=== PATIENT | female | born 1940 | race Caucasian/White ===

== ENCOUNTER 2021-05-24 14:12 | Outpatient (REF) | payer MEDICARE, SELFPAY ==
--- NOTE | ~2021-05-24 | XR_ITS ---
EXAMINATION: XR CHEST CLINICAL INFORMATION: Asthma. COMPARISON: None TECHNIQUE: 2 views of the chest were obtained. FINDINGS: The lungs are well-expanded and clear. There is mild cardiomegaly. The aorta is ectatic. No gross bony abnormality is seen. XR/XR chest 2V IMPRESSION: Mild cardiomegaly without acute process.
[2021-05-24 15:26] LABS: MANUAL DIFF FLAG NO
[2021-05-24 15:30] LABS: Basophils Absolute Auto 0.1 X10*3/uL (0.0-0.2); Basophils Percent Auto 0.4 % (0-2); Eosinophils Absolute Auto 0.2 X10*3/uL (0.0-0.4); Eosinophils Percent Auto 1.2 % (0-4); Hematocrit 41.7 % (37-47); Hemoglobin 13.1 g/dl (12.0-16.0); Imm Gran Abs Auto 0.23 X10*3/uL (0.00-0.03); Imm Gran Pct Auto 1.7 % (0.0-0.4); Lymphocytes Absolute Auto 3.3 X10*3/uL (1.2-4.9); Lymphocytes Percent Auto 24.3 % (20-40); Mean Corpuscular HGB Conc 31.4 g/dl (31.0-35.0); Mean Corpuscular Hemoglobin 27.3 pg (27.0-33.0); Mean Corpuscular Volume 87.1 fL (80-98); Mean Platelet Volume 9.5 fL (9.4-12.3); Monocytes Absolute Auto 1.1 X10*3/uL (0.1-1.2); Monocytes Percent Auto 7.9 % (2-11); Neutrophils Absolute Auto 8.7 X10*3/uL (2.0-8.3); Neutrophils Percent Auto 64.5 % (45-73); Platelet Count 383 X10*3/uL (160-400); Red Blood Count 4.79 X10*6/uL (4.20-5.50); Red Cell Distribution Width 15.2 % (11.0-16.0); White Blood Count 13.5 X10*3/uL (4.8-10.8)
[2021-05-24 16:12] LABS: Erythrocyte Sedimentation Rate 63 MM/HR (0-20)
[2021-05-28 18:26] LABS: Immunoglobulin E 1509 kU/L (<OR=114)
== END 2021-05-24 14:13 | disposition home or self-care (01) ==
LOC: HO.XRAY 14:12
PROVIDERS: PCP Internal Medicine; Visit Provider Hospitalist
DX: J45.909 Unspecified asthma, uncomplicated (principal); R05 Cough
CPT/HCPCS: 36415; 71046; 82785; 85025; 85652; 99212

== ENCOUNTER → 2021-07-26 13:42 | Outpatient (BNVA) | payer MEDICARE, MEDICAID, SELFPAY | PROVIDERS: PCP Internal Medicine; Visit Provider Hospitalist | DX: J45.909 Unspecified asthma, uncomplicated (principal); R05 Cough; K44.9 Diaphragmatic hernia without obstruction or gangrene; Z91.09 Other allergy status, other than to drugs and biological substances | CPT/HCPCS: 99212 ==

== ENCOUNTER → 2021-08-31 11:03 | Outpatient (BNVA) | payer MEDICARE, MEDICAID, SELFPAY | PROVIDERS: PCP Internal Medicine; Visit Provider Hospitalist | DX: J45.909 Unspecified asthma, uncomplicated (principal); R05.9 Cough, unspecified; K44.9 Diaphragmatic hernia without obstruction or gangrene; I11.0 Hypertensive heart disease with heart failure; I50.30 Unspecified diastolic (congestive) heart failure; Z91.09 Other allergy status, other than to drugs and biological substances | CPT/HCPCS: 99212 ==

== ENCOUNTER → 2021-12-04 12:43 | Outpatient (BNVA) | payer MEDICARE, MEDICAID, SELFPAY | PROVIDERS: PCP Internal Medicine; Visit Provider Hospitalist | DX: R05.9 Cough, unspecified (principal); J45.909 Unspecified asthma, uncomplicated; I50.30 Unspecified diastolic (congestive) heart failure; K44.9 Diaphragmatic hernia without obstruction or gangrene; Z91.09 Other allergy status, other than to drugs and biological substances; Z79.899 Other long term (current) drug therapy | CPT/HCPCS: 99212 ==

== ENCOUNTER 2022-01-03 09:37 | Outpatient (REF) | payer MEDICARE, OTHER, SELFPAY ==
--- NOTE | ~2022-01-03 | FL_ITS ---
EXAMINATION: FL BARIUM SWALLOW CLINICAL INFORMATION: Gastroesophageal reflux disease without esophagitis. COMPARISON: None TECHNIQUE: Barium swallow examination is performed using fluoroscopic evaluation in addition to multiple fluoroscopic spot views. The patient is imaged both upright and prone and using both thick and thin sulfate along with effervescent granules. Fluoroscopy time: 2.2 minutes DAP: 10.1581 Gycm2 Images: 48 FINDINGS: The esophagus is slightly tortuous. The esophagus is normal though otherwise normal in course and overall distensibility. There is an abnormal transversely oriented fold within the distal esophagus just proximal to the gastroesophageal junction (RF 2-1 image 1). The mucosa is otherwise unremarkable. Primary and secondary processes are unremarkable. For much of the study the gastroesophageal junction is normally located, though there is a sliding hiatus hernia containing a portion of the proximal stomach, which expresses itself while monitoring for reflux at the end of the study. There is spontaneous reflux of a small volume of contrast to the midesophagus without provocation. There is delayed clearing of this contrast. A 13 mm barium tablet passes to the stomach without obstruction. FL/FL barium swallow IMPRESSION: Irregular transversely oriented fold at the distal esophagus just proximal to the gastroesophageal junction of uncertain significance. Could represent a web, an incomplete Shatzki ring, or ulceration. Correlation with endoscopy could be of benefit. Sliding hiatus hernia. Gastroesophageal reflux to the midesophagus with delayed clearing.
== END 2022-01-03 09:38 | disposition home or self-care (01) ==
LOC: HO.XRAY 09:37
PROVIDERS: Visit Provider Hospitalist
DX: K21.9 Gastro-esophageal reflux disease without esophagitis (principal)
CPT/HCPCS: 74220

== ENCOUNTER → 2022-01-24 13:51 | Outpatient (BNVA) | payer MEDICARE, MEDICAID, SELFPAY | PROVIDERS: PCP Internal Medicine; Visit Provider Hospitalist | DX: J45.40 Moderate persistent asthma, uncomplicated (principal); R05.9 Cough, unspecified; I50.30 Unspecified diastolic (congestive) heart failure; K44.9 Diaphragmatic hernia without obstruction or gangrene; Z91.09 Other allergy status, other than to drugs and biological substances | CPT/HCPCS: 99212 ==

== ENCOUNTER 2022-04-19 06:59 | Day surgery (SDC) | payer MEDICARE, OTHER, SELFPAY ==
[2022-04-11 12:46] VITALS: BMI 34.0
--- NOTE | 2022-04-18 12:04 | P.CONAN_ITS ---
Documented by User: Dori Cobos NP 04/18/22 12:10 HPI - Anesthesia Eval Consult details Narrative: 81yo F for Upper Endoscopy Medically cleared Eliquis for DVT/PE PMFSH Active Problems Active Problems: All Active Problems (Updated 04/11/22 @ 12:45 by Megan Jackson, CARMEN) Asthma (Acute) Cough (Acute) Hiatal hernia (Acute) Environmental allergies (Acute) Diastolic HF (heart failure) (Acute) Hypertension (Acute) Asthma-COPD overlap syndrome (Acute) Abnormal barium swallow (Acute) Hiatal hernia (Acute) Past Medical History Medical History History of DVT (deep vein thrombosis) History of pulmonary embolus (PE) History of TIA (transient ischemic attack) Hyperlipidemia Hypothyroidism Obesity Osteoporosis Surgical History Surgical History History of colonoscopy History of esophagogastroduodenoscopy (EGD) Hx of cholecystectomy Hx of varicose vein stripping Social History Social History (Updated 05/24/21 @ 14:26 by ROBBIN Hoyt) Are you a primary career development counselor to a significant other at home: No Do you presently have visiting nurse or other home services: No Patient Tobacco Use Status: Never used Tobacco Use of substances other than those prescribed or required for medical reasons: No Are you DNR?: No Advance Directives: No Advance Directives Information Provided: Yes Advance Directives on File: No Recently lost weight without trying: Yes How much weight loss: 2-13 pounds Nutrition Risks: Surgical patient >75years Meds Allergies Allergy/AdvReac Type Severity Reaction Status Date / Time ibuprofen [IBUPROFEN] Allergy Intermediate HIVES Verified 04/19/22 07:57 Home Medications Medication Instructions Recorded Confirmed Last Taken Type alendronate 70 mg tablet 70 mg PO QWEEK 05/24/21 04/11/22 Unknown History ketotifen fumarate 0.025 % (0.035 1 drp ophthalmic (eye) BID 05/24/21 04/11/22 Unknown History %) eye drops allergies simvastatin 20 mg tablet 20 mg PO BEDTIME 05/24/21 04/11/22 Unknown History furosemide 20 mg tablet 20 mg PO BID 07/26/21 04/11/22 Unknown History losartan 50 mg tablet 50 mg PO DAILY 07/26/21 04/11/22 Unknown History apixaban 5 mg tablet (Eliquis) 5 mg PO BID 08/31/21 04/11/22 04/15/22 History calcium carbonate 600 mg calcium 600 mg PO BID 08/31/21 04/11/22 Unknown History (1,500 mg) tablet carvedilol 12.5 mg tablet 12.5 mg PO DAILY 08/31/21 04/11/22 04/19/22 05:45 History cholecalciferol (vitamin D3) 25 25 mcg PO DAILY 08/31/21 04/11/22 Unknown History mcg (1,000 unit) capsule hydralazine 25 mg tablet 25 mg PO TID 08/31/21 04/11/22 Unknown History hydrochlorothiazide 25 mg tablet 25 mg PO QAM 08/31/21 04/11/22 Unknown History levothyroxine 25 mcg tablet 75 mcg PO DAILY 01/24/22 04/11/22 04/19/22 05:45 History omeprazole 20 mg capsule,delayed 1 cap PO QAM 04/19/22 04/19/22 04/19/22 05:45 History release Exam Exam Date and Time: April 18, 2022 1204 Height,Weight and Vital Signs: Height 5 ft 2 in Weight 84.368 kg Narrative Narrative: EKG 01/2022 SR with 1st degree AV block LAD LBBB ECHO 07/2021 LV size is normal Mild conc LVH Mild asymmetric hypertrophy d/t sigmoid septum Nml LV systolic function EF 55-65% No definite RWMA LV filling pressures indeterminite Trileaflet aortic valve. Mild to mod aortic annular calcification. No . No AR. Mitral valve appears grossly nml. Mild MAC. Mild MR. Tricuspid valve grossly nml. Trace to mild TR No significant pericardial effusion. Epicardial fat pad present. Assessment and Plan Assessment Anesthesia Assessment: Chart Reviewed Documented by User: Micheal Ibarra MD 04/19/22 08:06 [facility] Past Medical History Medical History History of DVT (deep vein thrombosis) History of pulmonary embolus (PE) History of TIA (transient ischemic attack) Hyperlipidemia Hypothyroidism Obesity Osteoporosis Family History Family history of problems with anesthesia: No Surgical History Surgical History History of colonoscopy History of esophagogastroduodenoscopy (EGD) Hx of cholecystectomy Hx of varicose vein stripping History of Problems with Anesthesia: No Social History Social History (Updated 05/24/21 @ 14:26 by ROBBIN Hoyt) Are you a primary career development counselor to a significant other at home: No Do you presently have visiting nurse or other home services: No Patient Tobacco Use Status: Never used Tobacco Use of substances other than those prescribed or required for medical reasons: No Are you DNR?: No Advance Directives: No Advance Directives Information Provided: Yes Advance Directives on File: No Recently lost weight without trying: Yes How much weight loss: 2-13 pounds Nutrition Risks: Surgical patient >75years Meds Allergies Allergy/AdvReac Type Severity Reaction Status Date / Time ibuprofen [IBUPROFEN] Allergy Intermediate HIVES Verified 04/19/22 07:57 Home Medications Medication Instructions Recorded Confirmed Last Taken Type alendronate 70 mg tablet 70 mg PO QWEEK 05/24/21 04/11/22 Unknown History ketotifen fumarate 0.025 % (0.035 1 drp ophthalmic (eye) BID 05/24/21 04/11/22 Unknown History %) eye drops allergies simvastatin 20 mg tablet 20 mg PO BEDTIME 05/24/21 04/11/22 Unknown History furosemide 20 mg tablet 20 mg PO BID 07/26/21 04/11/22 Unknown History losartan 50 mg tablet 50 mg PO DAILY 07/26/21 04/11/22 Unknown History apixaban 5 mg tablet (Eliquis) 5 mg PO BID 08/31/21 04/11/22 04/15/22 History calcium carbonate 600 mg calcium 600 mg PO BID 08/31/21 04/11/22 Unknown History (1,500 mg) tablet carvedilol 12.5 mg tablet 12.5 mg PO DAILY 08/31/21 04/11/22 04/19/22 05:45 History cholecalciferol (vitamin D3) 25 25 mcg PO DAILY 08/31/21 04/11/22 Unknown Hist ory mcg (1,000 unit) capsule hydralazine 25 mg tablet 25 mg PO TID 08/31/21 04/11/22 Unknown History hydrochlorothiazide 25 mg tablet 25 mg PO QAM 08/31/21 04/11/22 Unknown History levothyroxine 25 mcg tablet 75 mcg PO DAILY 01/24/22 04/11/22 04/19/22 05:45 History omeprazole 20 mg capsule,delayed 1 cap PO QAM 04/19/22 04/19/22 04/19/22 05:45 History release Exam Airway Mallampati Class: III TM Dist: >3cm Neck ROM: Full Denture: Upper and Lower Assessment and Plan Assessment Anesthesia Assessment: Anesthesia Plan Discussed Final Anesthetic Review Family History of Problems with Anesthesia: No History of Problems with Anesthesia: No NPO: Yes ASA Class: III Final Preanesthetic Review: No Changes in Pt Med Stat, Meds/Allgs Chart Reviewed, Consent Obtained/Reviewed and Anes Risks/Benef Reviewed Patient Risk: Intermediate Procedure Risk: Low Anesthetic Plan Anesthetic Plan: MAC: Disposition: Standard PACU
[2022-04-19 07:55] VITALS: BP 125/68; PULSE 74; RESP 18; TEMP 36.1; O2SAT 90
[2022-04-19] MEDS: Lactated Ringers 1,000 ML 100 ML IVCONT (07:56)
--- NOTE | 2022-04-19 08:11 | MHC.SHP ---
Pre-Procedural Eval Section A Date of Service: 04/19/22 The patient is an INPATIENT: No Section B Chief Complaint: Abnormal findings on diagnostic imaging of other Details of Present Illness: see H&P no changes Relevant Family History (Specify if Yes): No Relevant Social History: None Present Medications: see Short Stay Collaborative assessment Medical History: No relevant PMH History of Previous Operations: No relevant previous surgery Allergies: Allergies Allergy/AdvReac Type Severity Reaction Status Date / Time ibuprofen [IBUPROFEN] Allergy Intermediate HIVES Verified 04/19/22 07:57 Review of Systems Sugical H&P ROS: Negative: Constitution, Cardiovascular, Respiratory, Neurological, Psychiatric, Hem-Onc, Allergic/Immunologic, Gastrointestinal, Genitourinary, Musculoskeletal, Integumentary, Endocrine and Eyes/Ears/Nose/Throat Exam Surgical H&P Exam: Normal: HEENT, Normal: Heart, Normal: Lungs, Normal: Extremities, Normal: Abdomen, Normal: Skin and Normal: Neurological Plan Diagnosis/Plan: Unchanged I have reviewed the history and physical and performed a pertinent physical examination on my patient. No changes have occurred unless specified.
[2022-04-19 08:36] VITALS: BP 110/55; PULSE 67; RESP 16; TEMP 37.2; O2SAT 98
--- NOTE | 2022-04-19 08:41 | P.BOP_ITS ---
Brief Operative Note Date of Service: 04/19/22 Pre-op diagnosis: abnl ugi Post-op diagnosis: same Procedure: egd Surgeon: Vic Servin Anesthesia: MAC Was an Proofer Prepress used for this Procedure?: No Estimated blood loss (mL): 0 Pathology: none sent Condition: stable Disposition: PACU
[2022-04-19 08:51] VITALS: BP 115/65; PULSE 71; RESP 18; TEMP 37.2; O2SAT 93
--- NOTE | 2022-04-19 12:38 | OP_ITS ---
SURGEON: Vic Servin MD INDICATIONS: Abnormal x-ray of the GI tract. PREOPERATIVE DIAGNOSIS: POSTOPERATIVE DIAGNOSIS: PROCEDURE PERFORMED: ESTIMATED BLOOD LOSS: COMPLICATIONS: ANESTHESIA: ASSISTANTS: SPECIMENS: PROCEDURE: Upper endoscopy. MEDICATIONS: Monitored anesthesia care. DESCRIPTION OF PROCEDURE: History and physical performed. The risks and benefits of the procedure were explained to the patient. Informed consent was obtained. The patient was placed in the left lateral decubitus position. The Olympus video gastroscope was introduced into the esophagus, stomach, and duodenum. Examination was performed. The scope was removed. She tolerated the procedure well and was taken to recovery in stable condition. FINDINGS: Esophagus: The esophagus was normal. There was no esophagitis. No mass or lesion was seen. The distal esophagus at the EG junction was carefully examined because of the abnormal x-ray report. It appeared normal. There was a small 3 cm hiatal hernia. Stomach: The stomach showed multiple benign-appearing gastric polyps in the body and fundus consistent with fundic gland polyps. The antrum was normal. Duodenum: The bulb and second portion were normal. IMPRESSION: 1. Hiatal hernia. 2. Gastric polyps. RECOMMENDATION: Follow up as needed. MD DOUGIE Hartman/ALYSSIA / [phone]
== END 2022-04-19 09:10 | disposition home or self-care (01) ==
PROVIDERS: PCP Internal Medicine; Visit Provider Internal Medicine Gastroenterology
PROC: 0DJ08ZZ Inspection of Upper Intestinal Tract, Via Natural or Artificial Opening Endoscopic (ICD-10-PCS; CPT 43235; principal; 2022-04-19 08:10)
DX: R93.3 Abnormal findings on diagnostic imaging of other parts of digestive tract (principal); K44.9 Diaphragmatic hernia without obstruction or gangrene; K31.7 Polyp of stomach and duodenum; K21.9 Gastro-esophageal reflux disease without esophagitis; R14.2 Eructation; J44.9 Chronic obstructive pulmonary disease, unspecified; I11.0 Hypertensive heart disease with heart failure; I50.30 Unspecified diastolic (congestive) heart failure; E78.5 Hyperlipidemia, unspecified; E03.9 Hypothyroidism, unspecified; M81.0 Age-related osteoporosis without current pathological fracture; Z86.718 Personal history of other venous thrombosis and embolism; Z86.711 Personal history of pulmonary embolism; Z86.73 Personal history of transient ischemic attack (TIA), and cerebral infarction without residual deficits; Z90.49 Acquired absence of other specified parts of digestive tract; Z79.51 Long term (current) use of inhaled steroids; Z79.899 Other long term (current) drug therapy; Z79.82 Long term (current) use of aspirin; Z88.8 Allergy status to other drugs, medicaments and biological substances; Z66 Do not resuscitate
CPT/HCPCS: 43235

== ENCOUNTER → 2022-04-25 13:12 | Outpatient (BNVA) | payer MEDICARE, MEDICAID, SELFPAY | PROVIDERS: PCP Internal Medicine; Visit Provider Hospitalist | DX: J45.40 Moderate persistent asthma, uncomplicated (principal); K44.9 Diaphragmatic hernia without obstruction or gangrene; Z91.09 Other allergy status, other than to drugs and biological substances; I50.30 Unspecified diastolic (congestive) heart failure | CPT/HCPCS: 99212 ==

== ENCOUNTER 2022-06-14 11:18 | Inpatient (IN) | payer MEDICARE, OTHER, SELFPAY ==
--- NOTE | ~2022-06-14 | CT_ITS ---
EXAMINATION: CT CHEST WITHOUT CONTRAST CLINICAL INFORMATION: Dyspnea. COMPARISON: 06/14/2022 and 05/24/2021 chest radiographs. TECHNIQUE: Multidetector volumetric CT imaging of the chest was done. Axial MIP volume rendering provided. Sagittal and coronal reformatted images were obtained. Mild motion artifact limits pulmonary evaluation. This CT examination was performed using dose optimization techniques as appropriate, variously including the following: *Automated exposure control *Adjustment of mA and/or kV according to patient size (this includes techniques or standardized protocols for targeted exams where dose is matched to indication/reason for exam; i.e. extremities or head) *Use of iterative reconstruction technique DLP: 268 mGy-cm FINDINGS: LUNGS/PLEURA/AIRWAYS: Small bilateral pleural effusions with adjacent atelectasis in the lower lobes. Scattered groundglass opacities are seen in the upper lobes, right greater than left. No suspicious pulmonary nodules. The airways are patent. MEDIASTINUM: The visualized thyroid gland is unremarkable. Mild atherosclerosis in the thoracic aorta without significant dilatation. Moderate to severe coronary artery calcifications. No pericardial effusion. No mediastinal or hilar lymphadenopathy. UPPER ABDOMEN: Very small hiatal hernia. No other significant upper abdominal abnormality. MUSCULOSKELETAL: Mild multilevel degenerative changes. No suspicious abnormality. SOFT TISSUES: Unremarkable. CT/CT chest wo con IMPRESSION: Small bilateral pleural effusions with adjacent atelectasis. No definitive consolidation or suspicious pulmonary nodules. These findings are nonspecific, but could be cardiogenic. Short-term radiographic follow-up with PA and lateral views of the chest are recommended as clinically indicated.
--- NOTE | ~2022-06-14 | XR_ITS ---
EXAMINATION: XR CHEST CLINICAL INFORMATION: Dyspnea COMPARISON: 12/16/2019 TECHNIQUE: Frontal view of the chest was obtained. FINDINGS: No convincing evidence of an acute process. Low lung volumes. No obvious failure or infiltrate. No effusion. Prominent right hilum. Etiology indeterminate. The cardiac silhouette is comparable. XR/XR chest 1V IMPRESSION: No acute finding in the lungs. No obvious failure or infiltrate. Prominent right hilum. Recommend PA and lateral films when the patient is able
[2022-06-14 11:24] VITALS: BP 131/56; PULSE 68; RESP 18; TEMP 36.8; O2SAT 93; BMI 35.4
--- NOTE | 2022-06-14 11:27 | ECG_ITS ---
Test Reason : dyspnea Blood Pressure : / mmHG Vent. Rate : 069 BPM Atrial Rate : 069 BPM P-R Int : 212 ms QRS Dur : 158 ms QT Int : 488 ms P-R-T Axes : 042 -31 150 degrees QTc Int : 522 ms Sinus rhythm with 1st degree A-V block Left axis deviation Left bundle branch block Abnormal ECG No previous ECGs available Referred By: Generic ED Physician Electronically Signed By:NAPOLEON CAPUTO
[2022-06-14 11:56] LABS: Hematocrit 30.9 % (37.0-47.0); Hemoglobin 9.9 g/dl (12.0-16.0); Mean Corpuscular Hemoglobin 27.7 pg (27.0-33.0); Mean Corpuscular Volume 86.6 fL (80.0-98.0); Mean Platelet Volume 9.7 fL (9.4-12.3); Platelet Count 397 X10*3/uL (160-400); Red Blood Count 3.57 X10*6/uL (4.20-5.50); White Blood Count 9.9 X10*3/uL (4.8-10.8)
--- NOTE | 2022-06-14 12:04 | ED.SOB ---
HPI - SOB/Dyspnea General Chief Complaint: Dyspnea Stated Complaint: face swollen/hands swollen Time Seen by Provider: 06/14/22 12:04 Source: patient Mode of arrival: ambulatory History of Present Illness HPI Narrative: 81-year-old female presentation for worsening edema and shortness of breath over the past 2 days without fever, chills, chest pain/palpitations and denies any nausea, vomiting, urinary symptoms. Related Data Home Medications Medication Instructions Recorded Confirmed alendronate 70 mg tablet 70 mg PO QWEEK 05/24/21 04/11/22 ketotifen fumarate 0.025 % (0.035 1 drp ophthalmic (eye) BID 05/24/21 04/11/22 %) eye drops allergies simvastatin 20 mg tablet 20 mg PO BEDTIME 05/24/21 04/11/22 furosemide 20 mg tablet 20 mg PO BID 07/26/21 04/11/22 losartan 50 mg tablet 50 mg PO DAILY 07/26/21 04/11/22 calcium carbonate 600 mg calcium 600 mg PO BID 08/31/21 04/11/22 (1,500 mg) tablet carvedilol 12.5 mg tablet 12.5 mg PO DAILY 08/31/21 04/11/22 cholecalciferol (vitamin D3) 25 25 mcg PO DAILY 08/31/21 04/11/22 mcg (1,000 unit) capsule hydrochlorothiazide 25 mg tablet 25 mg PO DAILY 08/31/21 04/11/22 omeprazole 20 mg capsule,delayed 1 cap PO DAILY 04/19/22 04/19/22 release apixaban 2.5 mg tablet (Eliquis) 2.5 mg PO BID 04/25/22 hydralazine 50 mg tablet 1 tab PO TID 06/14/22 levothyroxine 75 mcg tablet 75 mcg PO DAILY 06/14/22 Previous Rx's Medication Instructions Recorded azelastine 137 mcg (0.1 %) nasal 2 spray intranasal BID 30 days #30 05/24/21 spray aerosol mL montelukast 10 mg tablet 10 mg PO BEDTIME #90 tabs 01/21/22 levalbuterol HCl 1.25 mg/3 mL 1.25 mg (3 mL) inhalation BID #525 03/27/22 solution for nebulization mL budesonide 0.25 mg/2 mL suspension 0.25 mg (2 mL) inhalation BID #360 04/01/22 for nebulization mL benzonatate 200 mg capsule 200 mg PO BID PRN cough 90 days 04/25/22 #120 caps Allergies Allergy/AdvReac Type Severity Reaction Status Date / Time ibuprofen [IBUPROFEN] Allergy Intermediate HIVES Verified 04/25/22 13:38 Review of Systems Review of Systems: Pertinent positives and negatives as stated in HPI 10 point review of systems is otherwise negative. PMFSH Past Medical History Source: nursing notes reviewed Medical History Abnormal barium swallow Asthma Asthma-COPD overlap syndrome Cough Diastolic HF (heart failure) Environmental allergies Hiatal hernia Hiatal hernia History of DVT (deep vein thrombosis) History of pulmonary embolus (PE) (~07/2021) History of TIA (transient ischemic attack) (~01/2022) Hyperlipidemia Hypertension Hypothyroidism Obesity Osteoporosis Surgical History History of colonoscopy History of esophagogastroduodenoscopy (EGD) Hx of cholecystectomy Hx of varicose vein stripping Social History Social History Are you a primary caregiver assisted living to a significant other at home: No Do you presently have visiting nurse or other home services: No Patient Tobacco Use Status: Never used Tobacco Advance Directives: No Advance Directives Information Provided: No Physical Exam Vital Signs: Vital Signs: Last Vital Signs Temp 98.3 F 06/14/22 11:24 Pulse 67 06/14/22 12:56 Resp 20 06/14/22 12:56 BP 166/86 H 06/14/22 12:56 Pulse Ox 98 06/14/22 12:56 O2 Del Method 06/14/22 12:56 O2 Flow Rate 2 06/14/22 12:56 BMI result Body Mass Index 35.4 VITAL SIGNS: Reviewed. GENERAL: Well developed, well nourished, in no acute distress. HEAD: Normocephalic/atraumatic EYES: PERRLA, EOMI EARS: Ext canals without abnormality, TMs non-bulging and non-erythematous NOSE: Nares patent bilateral OROPHARYNX: no oral lesions noted, posterior pharynx clear NECK: Supple, no adenopathy LUNGS: Good inspiratory effort, no wheeze/rhonchi/rales however patient is noted to be tachypneic. SpO2<98> on supplemental nasal cannula, 2 L after she was noted to be 89% on room air in the waiting room. CARDIOVASCULAR: Regular rate and rhythm without noted murmurs, no JVD but bilateral lower extremity 1 to 2+ pitting edema ABDOMEN: Soft, non-tender, non-distended with bowel sounds. MUSCULOSKELETAL: No tenderness, deformities, or effusions noted on gross inspection. EXTREMITIES: No cyanosis, clubbing or edema. SKIN: Inspection of the skin reveals no rashes NEUROLOGIC: Alert and oriented x 4. Strength and sensation to light touch were grossly intact x 4. Course Course Course Narrative: 81-year-old female with history and clinical presentation consistent with CHF exacerbation and doubt asthma/COPD. Patient was initially hypoxic in the waiting room at 89%, does not wear oxygen at home and responded well to 2 L via nasal cannula. On review of all investigations she is noted to be in CHF and according to problem is likely diastolic. Review of all investigations further support CHF exacerbation with hypoxia, patient will be admitted after discussion with inpatient hospitalist who accepts admission. MDM - SOB/Dyspnea Lab Data Result diagrams: 06/14/22 11:39 06/14/22 11:39 Labs: Lab Results 06/14/22 06/14/22 06/14/22 Range/Units 11:39 11:39 11:39 WBC 9.9 (4.8-10.8) X10*3/uL RBC 3.57 L (4.20-5.50) X10*6/uL Hgb 9.9 L (12.0-16.0) g/dl Hct 30.9 L (37.0-47.0) % MCV 86.6 (80.0-98.0) fL MCH 27.7 (27.0-33.0) pg MCHC 32.0 (31.0-35.0) g/dl RDW 16.0 (11.0-16.0) % Plt Count 397 (160-400) X10*3/uL MPV 9.7 (9.4-12.3) fL Absolute Nucleated RBC 0.000 (0.0-0.012) X10*3/uL Nucleated RBC % (auto) 0.0 (0.0-0.2) /100WBC D-Dimer High Sensitivty NG/ML Sodium 134 L (135-145) mmol/L Potassium 3.3 (3.3-5.1) mmol/L Chloride 93 L (96-108) mmol/L Carbon Dioxide 31 H (22-29) mmol/L Anion Gap 13 (12-20) BUN 19 H (9-16) mg/dL Creatinine 0.76 (0.5-1.4) mg/dL Estim Creat Clear Calc 58.7 Estimated GFR > 60 Random Glucose 100 (60-115) mg/dL Calcium 8.4 (8.4-10.2) mg/dL Troponin I High Sens (<3.5-17.0) ng/L B-Natriuretic Peptide 3068 H (<100) pg/mL COVID-19 ([facility]ERTO) (Negative) COVID-19 Clin Com 06/14/22 06/14/22 06/14/22 Range/Units 11:39 11:39 13:15 WBC (4.8-10.8) X10*3/uL RBC (4.20-5.50) X10*6/uL Hgb (12.0-16.0) g/dl Hct (37.0-47.0) % MCV (80.0-98.0) fL MCH (27.0-33.0) pg MCHC (31.0-35.0) g/dl RDW (11.0-16.0) % Plt Count (160-400) X10*3/uL MPV (9.4-12.3) fL Absolute Nucleated RBC (0.0-0.012) X10*3/uL Nucleated RBC % (auto) (0.0-0.2) /100WBC D-Dimer High Sensitivty NG/ML Sodium (135-145) mmol/L Potassium (3.3-5.1) mmol/L Chloride (96-108) mmol/L Carbon Dioxide (22-29) mmol/L Anion Gap (12-20) BUN (9-16) mg/dL Creatinine (0.5-1.4) mg/dL Estim Creat Clear Calc Estimated GFR Random Glucose (60-115) mg/dL Calcium (8.4-10.2) mg/dL Troponin I High Sens 23.5 H 22.4 H (<3.5-17.0) ng/L B-Natriuretic Peptide (<100) pg/mL COVID-19 ([facility]ERTO) Negative (Negative) [employer] See Note 06/14/22 Range/Units 13:15 WBC (4.8-10.8) X10*3/uL RBC (4.20-5.50) X10*6/uL Hgb (12.0-16.0) g/dl Hct (37.0-47.0) % MCV (80.0-98.0) fL MCH (27.0-33.0) pg MCHC (31.0-35.0) g/dl RDW (11.0-16.0) % Plt Count (160-400) X10*3/uL MPV (9.4-12.3) fL Absolute Nucleated RBC (0.0-0.012) X10*3/uL Nucleated RBC % (auto) (0.0-0.2) /100WBC D-Dimer High Sensitivty 379 NG/ML Sodium (135-145) mmol/L Potassium (3.3-5.1) mmol/L Chloride (96-108) mmol/L Carbon Dioxide (22-29) mmol/L Anion Gap (12-20) BUN (9-16) mg/dL Creatinine (0.5-1.4) mg/dL Estim Creat Clear Calc Estimated GFR Random Glucose (60-115) mg/dL Calcium (8.4-10.2) mg/dL Troponin I High Sens (<3.5-17.0) ng/L B-Natriuretic Peptide (<100) pg/mL COVID-19 ([facility]ERTO) (Negative) [email or web address] ECG Data Attestation: I personally reviewed and interpreted this ECG as follows: Prior ECG tracings: not available for review Interpretation: Sinus rhythm with first-degree AV block, LBBB, no Sgarbossa criteria met Critical Care Time Critical Care Time Critical Care Time: Yes Total Critical Care Time: 30 Attestation: I personally attest to this time spent taking care of the patient. Discharge Plan Discharge Clinical Impression: Hypoxia, CHF exacerbation, LBBB (left bundle branch block) Patient Disposition: Admitted As Inpatient Prescriptions: No Action montelukast 10 mg tablet 10 mg PO BEDTIME Qty: 90 0RF levalbuterol HCl 1.25 mg/3 mL solution for nebulization 1.25 mg inhalation BID Qty: 525 0RF budesonide 0.25 mg/2 mL suspension for nebulization 0.25 mg inhalation BID Qty: 360 0RF omeprazole 20 mg capsule,delayed release(DR/EC) 1 cap PO QAM ketotifen fumarate 0.025 % (0.035 %) drops 1 drp ophthalmic (eye) BID alendronate 70 mg tablet 70 mg PO QWEEK simvastatin 20 mg tablet 20 mg PO BEDTIME azelastine 137 mcg (0.1 %) aerosol,spray 2 spray intranasal BID 30 Days Qty: 30 6RF Rx Instructions: administer into each nostril losartan 50 mg tablet 50 mg PO DAILY furosemide 20 mg tablet 20 mg PO BID carvedilol 12.5 mg tablet 12.5 mg PO DAILY calcium carbonate 600 mg calcium (1,500 mg) tablet 600 mg PO BID cholecalciferol (vitamin D3) 25 mcg (1,000 unit) capsule 25 mcg PO DAILY hydrochlorothiazide 25 mg tablet 25 mg PO QAM hydralazine 25 mg tablet 25 mg PO TID levothyroxine 25 mcg tablet 75 mcg PO DAILY Eliquis 2.5 mg tablet 2.5 mg PO BID benzonatate 200 mg capsule 200 mg PO BID PRN (Reason: cough) 90 Days Qty: 120 3RF
[2022-06-14 12:06] LABS: Anion Gap 13 (12-20); Blood Urea Nitrogen 19 mg/dL (9-16); Calcium 8.4 mg/dL (8.4-10.2); Carbon Dioxide 31 mmol/L (22-29); Chloride 93 mmol/L (96-108); Creatinine Clr Calc Pharmacy 58.7; Estimated Glomerular Filt Rate > 60; Glucose Random 100 mg/dL (60-115); Potassium 3.3 mmol/L (3.3-5.1); Sodium 134 mmol/L (135-145)
[2022-06-14 12:07] LABS: B Type Natriuretic Peptide 3068 pg/mL (<100); COVID-19 Test Negative (Negative); IDNOW Serial# 16C4AD1C; Troponin-I High Sensitivity 23.5 ng/L (<3.5-17.0)
[2022-06-14] MEDS: Furosemide 100 MG/10 ML VIAL 60 MG IVPUSH (12:47)
[2022-06-14 12:56] VITALS: BP 166/86; PULSE 67; RESP 20; O2SAT 98
[2022-06-14 13:40] LABS: D Dimer High Sensitivity 379 NG/ML
[2022-06-14 13:56] LABS: Troponin-I High Sensitivity 22.4 ng/L (<3.5-17.0)
[2022-06-14 14:10] LABS: Alanine Aminotransferase 27 U/L (0-31); Albumin Level 3.1 g/dL (3.5-5.0); Alkaline Phosphatase 127 U/L (39-117); Aspartate Amino Transferase 22 U/L (5-31); Bilirubin Direct 0.3 mg/dL (0.0-0.5); Bilirubin Total 0.6 mg/dL (0.0-1.0); Iron 25 mcg/dL (30-160); Percent Iron Saturation 7 % (15-50); Total Iron Binding Capacity 345 mcg/dL (228-428); Total Protein 5.7 g/dL (6.5-8.0); Unsaturated Iron Binding 320 ug/dL
--- NOTE | 2022-06-14 14:27 | PM.IMHP ---
History of Present Illness Date of Service: 06/14/22 Chief Complaint: sob 81F presented with sob. patient has pmh of DVT/PE, chronic diastolic chf, moderate persistent asthma, newly diagnosed UVALDO not yet treated. she has a chronic cough and chronic dyspnea, but not on home o2. patient has had several days of worsening bilateral lower extremity edema and facial fullness. associated with sob, decreased excersize tolerance. denies chest pain, fever, chills. in ED found to be hypoxic to low 80s on room air. elevated bnp, iron defeciency anemia. Review of Systems Review of Systems: Constitutional: Denies fever, denies Chills Eyes: denies blurry vision ENT: denies sore throat CVS: denies chest pain Respiratory: dyspnea GI: no abdominal pain : denies dysuria MSK: denies neck pain Skin: denies rash Neuro: denies specific motor weakness Psych: denies suicidal ideation Endocrine: denies heat/cold intolerance Hematologic: denies easy bleeding Allergy: denies hives [facility] Medical History Abnormal barium swallow Asthma Asthma-COPD overlap syndrome Cough Diastolic HF (heart failure) Environmental allergies Hiatal hernia Hiatal hernia History of DVT (deep vein thrombosis) History of pulmonary embolus (PE) (~07/2021) History of TIA (transient ischemic attack) (~01/2022) Hyperlipidemia Hypertension Hypothyroidism Obesity Osteoporosis Family History (Updated 06/14/22 @ 14:22 by Jonatan Flood MD) Brother Bone cancer Surgical History History of colonoscopy History of esophagogastroduodenoscopy (EGD) Hx of cholecystectomy Hx of varicose vein stripping Social History Are you a primary child care assistant to a significant other at home: No Do you presently have visiting nurse or other home services: No Patient Tobacco Use Status: Never used Tobacco Advance Directives: No Advance Directives Information Provided: No Meds Allergies Allergy/AdvReac Type Severity Reaction Status Date / Time ibuprofen [IBUPROFEN] Allergy Intermediate HIVES Verified 04/25/22 13:38 Active Medications: Current Medications Furosemide (Furosemide 40 Mg/4 Ml Vial) 40 mg IVPUSH BID@0900,1800 [facility]; Protocol Ferric Sodium Gluconate Complex 125 mg/ Sodium Chloride 110 mls @ 100 mls/hr IV ONCE ONE Stop: 06/14/22 15:29 Pharmacy Consult (Consult Rx Perform Med Rec) 1 each MISCELLANE ONCE PRN PRN Reason: Consult order Home Medications Medication Instructions Recorded Confirmed Last Taken Type alendronate 70 mg tablet 70 mg PO MO@0900 05/24/21 06/14/22 06/10/22 History ketotifen fumarate 0.025 % (0.035 1 drp ophthalmic (eye) BID 05/24/21 06/14/22 06/13/22 History %) eye drops allergies simvastatin 20 mg tablet 20 mg PO BEDTIME 05/24/21 06/14/22 06/13/22 History furosemide 20 mg tablet 20 mg PO BID 07/26/21 06/14/22 06/14/22 History losartan 50 mg tablet 100 mg PO DAILY 07/26/21 06/14/22 06/14/22 History calcium carbonate 600 mg calcium 600 mg PO BID 08/31/21 06/14/22 06/14/22 History (1,500 mg) tablet carvedilol 12.5 mg tablet 12.5 mg PO BID 08/31/21 06/14/22 06/14/22 History hydrochlorothiazide 25 mg tablet 25 mg PO DAILY 08/31/21 06/14/22 06/14/22 History omeprazole 20 mg capsule,delayed 1 cap PO DAILY 04/19/22 06/14/22 06/14/22 History release apixaban 2.5 mg tablet (Eliquis) 2.5 mg PO BID 04/25/22 06/14/22 06/14/22 History albuterol sulfate 90 mcg/actuation 2 puff inhalation Q4-6H PRN 06/14/22 06/14/22 Unknown History aerosol inhaler Shortness Of Breath cholecalciferol (vitamin D3) 50 50 mcg PO DAILY 06/14/22 06/14/22 06/14/22 History mcg (2,000 unit) tablet (Vitamin D3) ferrous sulfate 324 mg (65 mg 324 mg PO DAILY 06/14/22 06/14/22 Unknown History iron) tablet,delayed release hydralazine 50 mg tablet 1 tab PO TID 06/14/22 06/14/22 06/14/22 History levothyroxine 75 mcg tablet 75 mcg PO DAILY 06/14/22 06/14/22 06/14/22 History Physical Exam Vital Signs and Narrative: Vital Signs: Last Vital Signs Temp 98.3 F 06/14/22 11:24 Pulse 67 06/14/22 12:56 Resp 20 06/14/22 12:56 BP 166/86 H 06/14/22 12:56 Pulse Ox 98 06/14/22 12:56 O2 Del Method 06/14/22 12:56 O2 Flow Rate 2 06/14/22 12:56 BMI result Body Mass Index 35.4 General: dyspneic HEENT: atraumatic Neck: normal to visual inspection CVS: S1, S2, RRR Resp: Crackles bilateral Chest: non tender GI: soft, non tender, non distended : no CVA tenderness Skin: no rashes Extremities: 3 +bilateral edema Neuro: Oriented X3, grossly intact Psych: cooperative Results Labs CBC and Chem 7: 06/14/22 11:39 06/14/22 11:39 Labs: Laboratory Results - last 24 hr 06/14/22 06/14/22 06/14/22 11:39 11:39 11:39 MCV 86.6 MCH 27.7 MCHC 32.0 RDW 16.0 Plt Count 397 MPV 9.7 Absolute Nucleated RBC 0.000 Nucleated RBC % (auto) 0.0 D-Dimer High Sensitivty Anion Gap 13 Estim Creat Clear Calc 58.7 Estimated GFR > 60 Random Glucose 100 Calcium 8.4 Iron 25 L TIBC 345 % Saturation 7 L Unsat Iron Binding 320 Total Bilirubin 0.6 Direct Bilirubin 0.3 AST 22 ALT 27 Alkaline Phosphatase 127 H B-Natriuretic Peptide 3068 H Total Protein 5.7 L Albumin 3.1 L COVID-19 ([facility]) COVID-19 Clin Com 06/14/22 06/14/22 11:39 13:15 MCV MCH MCHC RDW Plt Count MPV Absolute Nucleated RBC Nucleated RBC % (auto) D-Dimer High Sensitivty 379 Anion Gap Estim Creat Clear Calc Estimated GFR Random Glucose Calcium Iron TIBC % Saturation Unsat Iron Binding Total Bilirubin Direct Bilirubin AST ALT Alkaline Phosphatase B-Natriuretic Peptide Total Protein Albumin COVID-19 ([facility]) Negative COVID-19 Clin Com See Note Imaging Radiologist's Impressions: Impressions Chest X-Ray 06/14/22 11:54 IMPRESSION: No acute finding in the lungs. No obvious failure or infiltrate. Prominent right hilum. Recommend PA and lateral films when the patient is able Assessment and Plan (1) Hypoxia: Status: Acute Plan 81F presented with sob acute hypoxic respiratory failure due to acute on chronic diastolic chf IV lasix, echo, monitor electrolytes moderate persistent asthma (does not appear to be in exacerbation) budesonide bronchodilators prn singulair iron defeciency anemia iv iron, outpatient GI PPI prominent hilum on cxr check CT chest history of DVT/PE continue eliquis obesity, recent uvaldo diagnosis weight loss, outpatient follow up hypothyroid synthroid HTN hydralazine, coreg, losartan DNR/DNI patient with significant symptomatic acute hypoxia requiring iv diuresis, risk factors include obeisty, advanced age, therefore, expected to require atleast 2 midnights in the hospital. Quality Stroke Does the patient have a stroke diagnosis?: No VTE Prior VTE?: No VTE Risk Level:: Medical - moderate - high VTE Device Contraindication: Treatment Not Indicated VTE Drug Contraindication: N/A - Med Ordered
[2022-06-14 14:31] LABS: Ferritin 127 ng/mL (10-250)
--- NOTE | 2022-06-14 14:40 | PHA.MEDREC ---
Pharmacy Consult ? Medication Reconciliation Pharmacy has completed the medication reconciliation. [employer] services used. Daughter was there with list of medications and verified last time taken.
[2022-06-14] MEDS: Sodium Ferric Gluconat/Sucrose 125 MG in 0.9 % Sodium Chloride 100 ML 100 MG IV (15:16)
[2022-06-14 15:57] VITALS: BP 168/84; PULSE 70; RESP 17; O2SAT 99
[2022-06-14] MEDS: hydrALAZINE HCl 50 MG TABLET PO ×2 (15:57→21:37)
[2022-06-14] MEDS: Furosemide 40 MG/4 ML VIAL IVPUSH (18:30)
[2022-06-14 18:31] VITALS: BP 136/72; PULSE 70; RESP 21; O2SAT 97
[2022-06-14 20:05] VITALS: BP 141/56; PULSE 76; RESP 22; TEMP 36.9; O2SAT 96
[2022-06-14] MEDS: Acetaminophen 325 MG TABLET 650 MG PO (21:37)
[2022-06-14] MEDS: Montelukast Sodium 10 MG TABLET PO (21:37)
[2022-06-14] MEDS: Atorvastatin Calcium 10 MG TABLET PO (21:37)
[2022-06-14] MEDS: Apixaban 5 MG TABLET PO (21:37)
[2022-06-15] VITALS (9 sets, daily range): BP systolic 111–153; BP diastolic 51–73; PULSE 68–77; RESP 16–24; TEMP 36.1–36.9; O2SAT 96–99
[2022-06-15] MEDS: Levothyroxine Sodium 75 MCG TABLET PO (05:42)
[2022-06-15] MEDS: Omeprazole 20 MG CAPSULE.DR PO (05:42)
[2022-06-15 06:36] LABS: Hematocrit 31.4 % (37.0-47.0); Hemoglobin 9.8 g/dl (12.0-16.0); Mean Corpuscular HGB Conc 31.2 g/dl (31.0-35.0); Mean Corpuscular Hemoglobin 27.2 pg (27.0-33.0); Mean Corpuscular Volume 87.2 fL (80.0-98.0); Mean Platelet Volume 9.9 fL (9.4-12.3); Platelet Count 425 X10*3/uL (160-400)
[2022-06-15 06:54] LABS: Anion Gap 13 (12-20); Blood Urea Nitrogen 21 mg/dL (9-16); Calcium 8.7 mg/dL (8.4-10.2); Carbon Dioxide 35 mmol/L (22-29); Chloride 93 mmol/L (96-108); Creatinine Clr Calc Pharmacy 55.2; Estimated Glomerular Filt Rate > 60; Glucose Fasting 91 mg/dL (60-99); Potassium 3.3 mmol/L (3.3-5.1); Sodium 138 mmol/L (135-145)
[2022-06-15] MEDS: hydrALAZINE HCl 50 MG TABLET PO ×3 (08:24→22:25)
[2022-06-15] MEDS: Apixaban 5 MG TABLET PO ×2 (08:24→22:22)
[2022-06-15] MEDS: carvediloL 12.5 MG TABLET PO (08:24)
[2022-06-15] MEDS: Potassium Chloride ER 20 MEQ TAB.ER.PRT 40 MEQ PO (08:24)
[2022-06-15] MEDS: Losartan Potassium 50 MG TABLET PO (08:24)
--- NOTE | 2022-06-15 08:28 | PC.NURSE ---
patient a/ox4 . pearrla . puffinesses noted under eyes r/t edema . heart rate regular at 68 beats . lungs diminished . skin pink warm and dry . bilateral non pitting edema noted on hands . abdomen soft non tender . positive bowels sounds in all four quadrants . catheter patent putting out yellow urine . patient is aware of plan of care .
[2022-06-15] MEDS: 0.9 % Sodium Chloride Flush 3 ML SYRINGE IVFLUSH ×2 (08:57→17:53)
--- NOTE | 2022-06-15 10:10 | PC.NURSE ---
pt's son-in-law is at bedside and he is aware of plan of care.
--- NOTE | 2022-06-15 10:36 | P.PNIM_ITS ---
Subjective Subjective Date of Service: 06/15/22 Interval History: cc: sob interval history: improving Cardiovascular Cardiovascular: Reports no additional cardiovascular complaints Gastrointestinal Gastrointestinal: Reports no additional gastrointestinal complaints Physical Exam Vital Signs: Vital Signs: Last Vital Signs Temp 98.2 F 06/15/22 10:35 Pulse 69 06/15/22 10:35 Resp 19 06/15/22 10:35 BP 126/53 L 06/15/22 10:35 Pulse Ox 97 06/15/22 10:35 O2 Del Method 06/15/22 10:35 O2 Flow Rate 3 06/15/22 10:35 BMI result Body Mass Index 35.4 General: AO X 3, no acute distress Resp: Crackles bilateral, no accessory muscles used CVS: S1,S2,RRR, edema GI: soft, non tender, non distended Neuro: motor grossly intact, alert Psych: appropriate affect, appropriate insight Objective Data Active Medications Acetaminophen (Acetaminophen 325 Mg Tablet) 650 mg PO Q6H PRN PRN Reason: Pain, Mild (Pain Scale 1-3) Last Admin: 06/14/22 21:37 Dose: 650 mg Documented By: ROBER Albuterol Sulfate (Albuterol Sulfate 90 Mcg 8 Gm Inhaler) 2 puff INHALE Q4H PRN PRN Reason: Shortness Of Breath Apixaban (Apixaban 5 Mg Tablet) 5 mg PO BID [facility] Last Admin: 06/15/22 08:24 Dose: 5 mg Documented By: NIKKI Atorvastatin Calcium (Atorvastatin Calcium 10 Mg Tablet) 10 mg PO BEDTIME [facility] Last Admin: 06/14/22 21:37 Dose: 10 mg Documented By: ROBER Calcium Carbonate (Calcium Carbonate 500 Mg Tablet) 500 mg PO BID [facility] Last Admin: 06/15/22 08:57 Dose: 500 mg Documented By: NIKKI Carvedilol (Carvedilol 12.5 Mg Tablet) 12.5 mg PO DAILY [facility]; Protocol Last Admin: 06/15/22 08:24 Dose: 12.5 mg Documented By: NIKKI Furosemide (Furosemide 40 Mg/4 Ml Vial) 40 mg IVPUSH BID@0900,1800 [facility]; Protocol Last Admin: 06/14/22 18:30 Dose: 40 mg Documented By: LYUDMILA Hydralazine HCl (Hydralazine Hcl 50 Mg Tablet) 50 mg PO TID [facility]; Protocol Last Admin: 06/15/22 08:24 Dose: 50 mg Documented By: NIKKI Levothyroxine Sodium (Levothyroxine Sodium 75 Mcg Tablet) 75 mcg PO DAILY@0600 [facility] Last Admin: 06/15/22 05:42 Dose: 75 mcg Documented By: ROBER Losartan Potassium (Losartan Potassium 50 Mg Tablet) 50 mg PO DAILY [facility]; Protocol Last Admin: 06/15/22 08:24 Dose: 50 mg Documented By: NIKKI Montelukast Sodium (Montelukast Sodium 10 Mg Tablet) 10 mg PO BEDTIME [facility] Last Admin: 06/14/22 21:37 Dose: 10 mg Documented By: ROBER Omeprazole (Omeprazole 20 Mg Capsule.) 20 mg PO DAILY@0630 [facility] Last Admin: 06/15/22 05:42 Dose: 20 mg Documented By: ROBER Pharmacy Consult (Consult Rx Perform Med Rec) 1 each MISCELLANE ONCE PRN PRN Reason: Consult order Sodium Chloride (0.9 % Sodium Chloride Flush 3 Ml Syringe) 3 ml IVFLUSH QSHIFT [facility] Last Admin: 06/15/22 08:57 Dose: 3 ml Documented By: NIKKI Vitamin D (Cholecalciferol (Vitamin D3) 25 Mcg Tablet) 50 mcg PO DAILY [facility] Labs CBC & Chem 7: 06/15/22 05:53 06/15/22 05:53 Labs: Laboratory Results - last 24 hr 06/14/22 06/14/22 06/14/22 11:39 11:39 11:39 MCV 86.6 MCH 27.7 MCHC 32.0 RDW 16.0 Plt Count 397 MPV 9.7 Absolute Nucleated RBC 0.000 Nucleated RBC % (auto) 0.0 D-Dimer High Sensitivty Anion Gap 13 Estim Creat Clear Calc 58.7 Estimated GFR > 60 Random Glucose 100 Fasting Glucose Calcium 8.4 Magnesium Iron 25 L TIBC 345 % Saturation 7 L Unsat Iron Binding 320 Ferritin 127 Total Bilirubin 0.6 Direct Bilirubin 0.3 AST 22 ALT 27 Alkaline Phosphatase 127 H B-Natriuretic Peptide 3068 H Total Protein 5.7 L Albumin 3.1 L COVID-19 ([facility]) COVID-19 Clin Com 06/14/22 06/14/22 06/15/22 11:39 13:15 05:53 MCV 87.2 MCH 27.2 MCHC 31.2 RDW 16.0 Plt Count 425 H MPV 9.9 Absolute Nucleated RBC 0.000 Nucleated RBC % (auto) 0.0 D-Dimer High Sensitivty 379 Anion Gap Estim Creat Clear Calc Estimated GFR Random Glucose Fasting Glucose Calcium Magnesium Iron TIBC % Saturation Unsat Iron Binding Ferritin Total Bilirubin Direct Bilirubin AST ALT Alkaline Phosphatase B-Natriuretic Peptide Total Protein Albumin COVID-19 ([facility]) Negative COVID-19 Clin Com See Note 06/15/22 05:53 MCV MCH MCHC RDW Plt Count MPV Absolute Nucleated RBC Nucleated RBC % (auto) D-Dimer High Sensitivty Anion Gap 13 Estim Creat Clear Calc 55.2 Estimated GFR > 60 Random Glucose Fasting Glucose 91 Calcium 8.7 Magnesium 2.0 Iron TIBC % Saturation Unsat Iron Binding Ferritin Total Bilirubin Direct Bilirubin AST ALT Alkaline Phosphatase B-Natriuretic Peptide Total Protein Albumin COVID-19 ([facility]) COVID-19 Clin Com Assessment and Plan (1) Hypoxia: Status: Acute Plan 81F presented with sob acute hypoxic respiratory failure due to acute on chronic diastolic chf continue IV lasix, echo, monitor electrolytes moderate persistent asthma (does not appear to be in exacerbation) budesonide bronchodilators prn singulair iron defeciency anemia s/p iv iron, outpatient GI PPI prominent hilum on cxr follow up CT chest history of DVT/PE continue eliquis obesity, recent manolo diagnosis weight loss, outpatient follow up hypothyroid synthroid HTN hydralazine, coreg, losartan DNR/DNI reason for continued hospitalization:ongoing iv diuresis for hypoxia/chf Quality Stroke Does the patient have a stroke diagnosis?: No VTE Prior VTE?: No VTE Risk Level:: Medical - moderate - high VTE Device Contraindication: Treatment Not Indicated VTE Drug Contraindication: N/A - Med Ordered
[2022-06-15] MEDS: Furosemide 40 MG/4 ML VIAL IVPUSH ×2 (10:52→18:02)
[2022-06-15] MEDS: Cholecalciferol (Vitamin D3) 25 MCG TABLET 50 MCG PO (10:52)
--- NOTE | 2022-06-15 18:02 | PC.NURSE ---
pt's daughter katelynn is at bedside, pt/daughter aware of plan of care.
--- NOTE | 2022-06-15 20:38 | PC.NURSE ---
PATIENT ATE 100 % OF SUPPER ,DRANK 600 ML FLUIDS ,DAUGHTER WAS HERE VISITING , PATIENT WAS ASSISTED UNTO BEDSIDE COMMODE ,HAD LARGE BOWEL MOVEMENT , SPONGE BATH GIVEN BEDDING CHANGE ,PATIENT WAS MADE COMFORTABLE FOR THE NIGHT .
[2022-06-15] MEDS: Montelukast Sodium 10 MG TABLET PO (22:23)
[2022-06-15] MEDS: Atorvastatin Calcium 10 MG TABLET PO (22:25)
[2022-06-16 06:26] VITALS: BP 130/60; PULSE 82; RESP 15; O2SAT 94
[2022-06-16 07:03] LABS: Hematocrit 33.5 % (37.0-47.0); Hemoglobin 10.6 g/dl (12.0-16.0); Mean Corpuscular HGB Conc 31.6 g/dl (31.0-35.0); Mean Corpuscular Hemoglobin 27.7 pg (27.0-33.0); Mean Corpuscular Volume 87.5 fL (80.0-98.0); Mean Platelet Volume 9.6 fL (9.4-12.3); Platelet Count 450 X10*3/uL (160-400); Red Blood Count 3.83 X10*6/uL (4.20-5.50); Red Cell Distribution Width 15.9 % (11.0-16.0); White Blood Count 9.9 X10*3/uL (4.8-10.8)
[2022-06-16] MEDS: Levothyroxine Sodium 75 MCG TABLET PO (07:10)
[2022-06-16] MEDS: Omeprazole 20 MG CAPSULE.DR PO (07:10)
[2022-06-16 07:24] LABS: Anion Gap 13 (12-20); Blood Urea Nitrogen 20 mg/dL (9-16); Calcium 9.2 mg/dL (8.4-10.2); Carbon Dioxide 37 mmol/L (22-29); Chloride 92 mmol/L (96-108); Creatinine Clr Calc Pharmacy 59.5; Estimated Glomerular Filt Rate > 60; Glucose Fasting 97 mg/dL (60-99); Magnesium 1.9 mg/dL (1.6-2.6); Potassium 3.8 mmol/L (3.3-5.1); Sodium 138 mmol/L (135-145)
--- NOTE | 2022-06-16 09:05 | MHC.CM.PN ---
CM ATTEMPTED TO MEET WITH PT TO COMPLETE INITIAL LIBRARIAN ASSISTANT PT SLEEPING AND ASKS THAT T/W RETURN AT A LATER TIME IMM DELIVERED, COPY SENT TO MEDICAL RECORDS PER CHART REVIEW, IT APPEARS PT IS LIKELY TO RETURN HOME AT DC, POSSIBLY WITH [facility]
[2022-06-16 09:23] VITALS: BP 122/67; PULSE 78; RESP 16; O2SAT 87
[2022-06-16 09:25] VITALS: O2SAT 92
[2022-06-16] MEDS: Furosemide 40 MG/4 ML VIAL IVPUSH ×2 (09:33→17:51)
[2022-06-16] MEDS: Losartan Potassium 50 MG TABLET PO (09:34)
[2022-06-16] MEDS: Apixaban 5 MG TABLET PO ×2 (09:34→23:26)
[2022-06-16] MEDS: Cholecalciferol (Vitamin D3) 25 MCG TABLET 50 MCG PO (09:34)
[2022-06-16] MEDS: hydrALAZINE HCl 50 MG TABLET PO ×3 (09:34→23:26)
[2022-06-16] MEDS: carvediloL 12.5 MG TABLET PO (09:34)
--- NOTE | 2022-06-16 09:54 | PC.NURSE ---
pt had desat episode while sleeping. spo2 as low as 86% w good pleth. pt easily arousable. spo2 back to 91% w significant coached breathing. pt placed on 0.5l nc maintaining spo2 90-93%
--- NOTE | 2022-06-16 10:41 | HO.PM.IMPN ---
Subjective Subjective Date of Service: 06/16/22 Interval History: cc: sob interval history: improving Cardiovascular Cardiovascular: Reports no additional cardiovascular complaints Gastrointestinal Gastrointestinal: Reports no additional gastrointestinal complaints Physical Exam Vital Signs: Vital Signs: Last Vital Signs Temp 97.0 F 06/15/22 23:53 Pulse 78 06/16/22 09:23 Resp 16 06/16/22 09:23 BP 122/67 06/16/22 09:23 Pulse Ox 92 06/16/22 09:25 O2 Del Method 06/16/22 09:25 O2 Flow Rate 0.5 06/16/22 09:25 BMI result Body Mass Index 35.4 General: AO X 3, no acute distress Resp: Crackles bilateral, no accessory muscles used CVS: S1,S2,RRR, edema GI: soft, non tender, non distended Neuro: motor grossly intact, alert Psych: appropriate affect, appropriate insight Objective Data Active Medications Acetaminophen (Acetaminophen 325 Mg Tablet) 650 mg PO Q6H PRN PRN Reason: Pain, Mild (Pain Scale 1-3) Last Admin: 06/14/22 21:37 Dose: 650 mg Documented By: ROBER Albuterol Sulfate (Albuterol Sulfate 90 Mcg 8 Gm Inhaler) 2 puff INHALE Q4H PRN PRN Reason: Shortness Of Breath Apixaban (Apixaban 5 Mg Tablet) 5 mg PO BID [facility] Last Admin: 06/16/22 09:34 Dose: 5 mg Documented By: KONRAD Atorvastatin Calcium (Atorvastatin Calcium 10 Mg Tablet) 10 mg PO BEDTIME [facility] Last Admin: 06/15/22 22:25 Dose: 10 mg Documented By: MILLICENT Calcium Carbonate (Calcium Carbonate 500 Mg Tablet) 500 mg PO BID [facility] Last Admin: 06/16/22 10:14 Dose: 500 mg Documented By: KONRAD Carvedilol (Carvedilol 12.5 Mg Tablet) 12.5 mg PO DAILY [facility]; Protocol Last Admin: 06/16/22 09:34 Dose: 12.5 mg Documented By: KONRAD Furosemide (Furosemide 40 Mg/4 Ml Vial) 40 mg IVPUSH BID@0900,1800 [facility]; Protocol Last Admin: 06/16/22 09:33 Dose: 40 mg Documented By: KONRAD Hydralazine HCl (Hydralazine Hcl 50 Mg Tablet) 50 mg PO TID [facility]; Protocol Last Admin: 06/16/22 09:34 Dose: 50 mg Documented By: KONRAD Levothyroxine Sodium (Levothyroxine Sodium 75 Mcg Tablet) 75 mcg PO DAILY@0600 [facility] Last Admin: 06/16/22 07:10 Dose: 75 mcg Documented By: JERARDO Losartan Potassium (Losartan Potassium 50 Mg Tablet) 50 mg PO DAILY [facility]; Protocol Last Admin: 06/16/22 09:34 Dose: 50 mg Documented By: KONRAD Montelukast Sodium (Montelukast Sodium 10 Mg Tablet) 10 mg PO BEDTIME [facility] Last Admin: 06/15/22 22:23 Dose: 10 mg Documented By: MILLICENT Omeprazole (Omeprazole 20 Mg Capsule.) 20 mg PO DAILY@0630 [facility] Last Admin: 06/16/22 07:10 Dose: 20 mg Documented By: JERARDO Pharmacy Consult (Consult Rx Perform Med Rec) 1 each MISCELLANE ONCE PRN PRN Reason: Consult order Sodium Chloride (0.9 % Sodium Chloride Flush 3 Ml Syringe) 3 ml IVFLUSH QSHIFT [facility] Last Admin: 06/16/22 07:22 Dose: Not Given Documented By: KONRAD Non-Admin Reason: Med Not Available Vitamin D (Cholecalciferol (Vitamin D3) 25 Mcg Tablet) 50 mcg PO DAILY [facility] Last Admin: 06/16/22 09:34 Dose: 50 mcg Documented By: KONRAD Labs CBC & Chem 7: 06/16/22 06:35 06/16/22 06:35 Labs: Laboratory Results - last 24 hr 06/16/22 06/16/22 06:35 06:35 MCV 87.5 MCH 27.7 MCHC 31.6 RDW 15.9 Plt Count 450 H MPV 9.6 Absolute Nucleated RBC 0.000 Nucleated RBC % (auto) 0.0 Anion Gap 13 Estim Creat Clear Calc 59.5 Estimated GFR > 60 Fasting Glucose 97 Calcium 9.2 Magnesium 1.9 Assessment and Plan (1) Hypoxia: Status: Acute Plan 81F presented with sob acute hypoxic respiratory failure due to acute on chronic diastolic chf feeling better but still unable to wean off o2, sob on exertion continue IV lasix, echo, monitor electrolytes moderate persistent asthma (does not appear to be in exacerbation) budesonide bronchodilators prn singulair iron defeciency anemia s/p iv iron, outpatient GI PPI prominent hilum on cxr ct chest unremarkable history of DVT/PE continue eliquis obesity, recent manolo diagnosis weight loss, outpatient follow up hypothyroid synthroid HTN hydralazine, coreg, losartan DNR/DNI reason for continued hospitalization:ongoing iv diuresis for hypoxia/chf Quality Stroke Does the patient have a stroke diagnosis?: No VTE Prior VTE?: No VTE Risk Level:: Medical - moderate - high VTE Device Contraindication: Treatment Not Indicated VTE Drug Contraindication: N/A - Med Ordered
[2022-06-16] MEDS: guaiFENesin 200 MG/10 ML 10 ML LIQUID PO (11:47)
[2022-06-16 15:15] VITALS: BP 136/64; PULSE 74; RESP 20; O2SAT 97
[2022-06-16 17:58] VITALS: BP 157/70; PULSE 79; RESP 20; TEMP 36.6; O2SAT 94
--- NOTE | 2022-06-16 19:30 | PC.NURSE ---
THIS NURSE HAS NOW ASSUMED CARE OF PT
[2022-06-16 20:05] VITALS: BP 153/65; PULSE 83; RESP 24; O2SAT 95
[2022-06-16] MEDS: Atorvastatin Calcium 10 MG TABLET PO (23:26)
[2022-06-16] MEDS: Montelukast Sodium 10 MG TABLET PO (23:28)
[2022-06-17] VITALS: BP 120/98; PULSE 79; RESP 18; TEMP 36.1; O2SAT 98
[2022-06-17] MEDS: 0.9 % Sodium Chloride Flush 3 ML SYRINGE IVFLUSH ×2 (00:07→08:32)
[2022-06-17 03:18] VITALS: BP 148/70; PULSE 80; RESP 18; TEMP 36.4; O2SAT 94
[2022-06-17] MEDS: Omeprazole 20 MG CAPSULE.DR PO (06:19)
[2022-06-17] MEDS: Levothyroxine Sodium 75 MCG TABLET PO (06:19)
--- NOTE | 2022-06-17 07:00 | CA_ITS ---
Transthoracic Echocardiogram Patient (Last, First, Middle): Carla Manjarrez M Gender: Female Date of : 1940 Age: 81 Procedure Date: 06/17/2022 Procedure Type: Transthoracic Echocardiogram Location: ER Height: 157.48 cm Weight: 88. kg BSA: 1.89 m2 Heart Rate: bpm BP: 148 / 70 mmHg Atg Java Developer: TO Referring MD: Jonatan Flood MD Symptoms: chf Study Quality: Adequate Conclusions: - The left ventricular systolic function is mildly decreased. The visually estimated ejection fraction is between 40-45%. - The mid inferoseptal and mid anteroseptal segments are akinetic. - Mildly increased right ventricular cavity size. - The left atrium is moderately dilated. - No obvious valvular pathology seen on this study. - Mild pulmonary hypertension is present. Findings Left Ventricle Normal left ventricular cavity size. There is moderately increased left ventricular wall thickness. The left ventricular systolic function is mildly decreased. The visually estimated ejection fraction is between 40-45%. There is evidence of regional wall motion abnormalities. There is paradoxical septal motion consistent with a left bundle branch block. E/E prime ratio is >15, consistent with elevated filling pressures. Evidence suggests grade I (mild) diastolic dysfunction. Wall Motion Rest Echo Findings The mid inferoseptal and mid anteroseptal segments are akinetic. Right Ventricle Mildly increased right ventricular cavity size. There is normal right ventricular systolic function. Atria The left atrium is moderately dilated. The right atrium is normal in size. Aortic Valve There is a normal trileaflet aortic valve. There is no aortic valve stenosis. There is no aortic valve regurgitation. Mitral Valve The mitral valve appears normal. There is trace mitral valve regurgitation. There is no mitral valve stenosis. Pulmonic Valve There is trace pulmonic valve regurgitation. Tricuspid Valve Normal tricuspid valve structure. There is trace tricuspid valve regurgitation. The right ventricular systolic pressure is 39 mmHg. Mild pulmonary hypertension is present. Great Vessels The asc aorta is normal in size. Venous The inferior vena cava is normal in size and collapses greater than 50% with inspiration. Pericardium/Pleural There is no evidence of pericardial effusion. Prior Study Comparison No prior study available for comparison. Recommendations, Care & Conclusions No obvious valvular pathology seen on this study. Measurements 2D Linear Measurements IVSd: 1.34 0.6-0.9/0.6-1.0 cm LVIDd: 5.13 3.9-5.3/4.2-5.9 cm LVIDd Index: 2.71 2.4-3.2/2.2-3.1 cm/m2 LVIDs: 3.33 2.0-3.6 cm LVPWd: 1.35 0.7-1.1 cm LA Diam: 4.10 2.7-3.8/3.0-4.0 cm LAIDs Index: 2.17 1.5-2.3 cm/m2 LV Mass: 356.93 67-162/88-224 g LV Mass Index: 188.85 43-95/49-115 g/m2 LVOT Diam: 1.90 3.0+(-)1.3 cm 2D Systolic Function EF 4C: 41.80 >55% EF 2C: 53.40 >55% EF BiP: 47.90 >55% Mitral Valve MV Pk E: 0.95 MV PK A: 0.95 MV Decel Time: 159.00 E/A: 1.00 E'Lateral: 5.98 E'Medial: 5.22 E/E' Med: 18.20 E/E' Lat: 15.90 PHT: 47.00 MVA PHT: 4.68 Decel Linn: 5.98 Aortic Valve AoV Pk Chandler: 1.74 AoV Mn Chandler: 1.12 AoV VTI: 0.28 AoV Pk Grad: 12.00 Aov Mn Grad: 6.00 ANATSASIIA Cont.VTI: 2.45 LVOT LVOT Pk Chandler: 1.38 LVOT Mn Chandler: 0.83 LVOT VTI: 0.24 LVOT Pk Grad: 8.00 LVOT Mn Grad: 3.00 LVOT Diam: 1.90 LVOT Area: 2.84 Diastolic Function MV Pk E: 0.95 MV Pk A: 0.95 E/A: 1.00 E'Medial: 5.22 E/E' Med: 18.20 E' Laterial: 5.98 E/E' Lat: 15.90 Right Ventricle TAPSE (mm): 22.60 TVS' Chandler: 10.10 Tricuspid Valve TR Pk Chandler: 2.65 TR Pk Grad: 28.00 RVSP: 39.00 Great Vessels Aorta Sinus of Valsalva: 3.03 2.0-3.[address] Ridge: 2.50 1.7-3.4 cm Ao Asc: 2.70 2.1-3.4 cm Updated in Other Vendor System with Status of Final Nadir Tran MD electronically signed on 06/17/2022 11:43:11 AM with status of Final
[2022-06-17 07:37] LABS: Hematocrit 35.1 % (37.0-47.0); Hemoglobin 11.1 g/dl (12.0-16.0); Mean Corpuscular HGB Conc 31.6 g/dl (31.0-35.0); Mean Corpuscular Hemoglobin 27.4 pg (27.0-33.0); Mean Corpuscular Volume 86.7 fL (80.0-98.0); Mean Platelet Volume 9.5 fL (9.4-12.3); Platelet Count 492 X10*3/uL (160-400); Red Blood Count 4.05 X10*6/uL (4.20-5.50); Red Cell Distribution Width 15.6 % (11.0-16.0); White Blood Count 10.2 X10*3/uL (4.8-10.8)
[2022-06-17 08:01] LABS: Anion Gap 15 (12-20); Blood Urea Nitrogen 17 mg/dL (9-16); Calcium 9.3 mg/dL (8.4-10.2); Carbon Dioxide 38 mmol/L (22-29); Chloride 89 mmol/L (96-108); Creatinine Clr Calc Pharmacy 62.9; Estimated Glomerular Filt Rate > 60; Glucose Fasting 100 mg/dL (60-99); Potassium 3.6 mmol/L (3.3-5.1); Sodium 138 mmol/L (135-145)
[2022-06-17 08:04] LABS: B Type Natriuretic Peptide 1132 pg/mL (<100)
[2022-06-17] MEDS: carvediloL 12.5 MG TABLET PO (08:31)
[2022-06-17] MEDS: Apixaban 5 MG TABLET PO (08:31)
[2022-06-17] MEDS: Cholecalciferol (Vitamin D3) 25 MCG TABLET 50 MCG PO (08:31)
[2022-06-17] MEDS: Furosemide 40 MG/4 ML VIAL IVPUSH (08:31)
[2022-06-17] MEDS: Losartan Potassium 50 MG TABLET PO (08:31)
[2022-06-17 08:32] VITALS: BP 149/79; PULSE 88; RESP 18; TEMP 36.7; O2SAT 95
[2022-06-17] MEDS: hydrALAZINE HCl 50 MG TABLET PO (08:32)
--- NOTE | 2022-06-17 09:14 | MHC.CM.PN ---
Addendum entered by Parris Butler 06/17/22 09:18: CM CALLED PTS DAUGHTER, WHIT [phone] WHO REPORTS THE PT COMPLETED A HCP IN JULY OF 2021, NAMING HER THE AGENT WHIT REPORTS SHE HAS THE DOCUMENT COPY REQUESTED Original Note: PT REPORTS SHE LIVES WITH HER DAUGHTER AND DAUGHTERS SPOUSE SHE REPORTS SHE IS INDEPENDENT WITH HER CARE HOWEVER FAMILY ASSISTS NEEDED PT REPORTS SHE HAS A CANE AT HOME BUT ONLY USES IT ON OCCASION PT HAS A DNR (FULL CODE) ON FILE SHE IS UNSURE ABOUT A HCP PCP: IBRAHIMA CAPONE IMM DELIVERED PREVIOUSLY CURRENT DC PLAN IS HOME WITH NO SERVICES FAMILY TO TRANSPORT
--- NOTE | 2022-06-17 11:23 | PC.NURSE ---
Patient pulled out own chung this AM, Dr. Flood made aware and telephone order to keep chung out and attempt to wean O2. Patient voiding in commode multiple times. Patient was at 2L NC and weaned to 1L NC and sating 96%. Dr. Flood placed order for home O2 eval. Home O2 eval completed and patient maintained sats at 92% on RA with activity, no SOB, or tachycardia. Patient now on RA resting comfortably in bed. No complaints of pain.
--- NOTE | 2022-06-17 11:40 | MHC.CM.PN ---
Received notification patient will be discharged home today. Home oxygen eval was done. Home oxygen not needed. [place] [facility] [place] 2[place]. Continue to monitor for d/c needs.
--- NOTE | 2022-06-17 11:58 | P.DS_ITS ---
DS: Providers Provider Date of Service: 06/17/22 Date of admission: 06/14/22 14:25 Primary care physician: Edmond Davis MD DS: Diagnosis Discharge Diagnosis (1) Hypoxia: Status: Acute DS: Summary Hospital Course Hospital Course: from initial hpi: Chief Complaint: sob 81F presented with sob. patient has pmh of DVT/PE, chronic diastolic chf, moderate persistent asthma, newly diagnosed UVALDO not yet treated. she has a chronic cough and chronic dyspnea, but not on home o2. patient has had several days of worsening bilateral lower extremity edema and facial fullness. associated with sob, decreased excersize tolerance. denies chest pain, fever, chills. in ED found to be hypoxic to low 80s on room air. elevated bnp, iron defeciency anemia. hospital course: Patient was admitted for acute hypoxic respiratory failure secondary to acute on chronic diastolic CHF. She was given IV Lasix and diuresed well. Echo was done and report should be followed up. She has known moderate persistent asthma but did not appear to be in acute exacerbation. She will continue budesonide and bronchodilators and singular. She is noted to have iron deficiency anemia she received 1 dose of IV iron and will follow up with GI as outpatient she will continue on PPI. For her history of DVT/PE she will continue on Eliquis, this should be of 5 mg b.i.d.. For obesity with recent obstructive sleep apnea diagnosis weight loss is recommended and should follow up outpatient. Hyp othyroidism she will continue Synthroid. Hypertension she will continue hydralazine, Coreg, losartan.Patient is feeling much better was able to be weaned off oxygen she will be discharged home to continue her oral diuretics and should monitor her weight and edema. Time Spent with Patient Time attestation: Total time spent providing and/or coordinating discharge services: Discharge coordination time: Greater than 30 minutes Quality: Safe Use of Opioids Does Pt have an Active Cancer Diagnosis on the Problem List?: No Quality: Stroke Does the patient have a stroke diagnosis?: No Physical Exam Vital Signs: Vital Signs: Last Vital Signs Temp 98.1 F 06/17/22 08:32 Pulse 88 06/17/22 08:32 Resp 18 06/17/22 08:32 BP 149/79 H 06/17/22 08:32 Pulse Ox 95 06/17/22 08:32 O2 Del Method 06/17/22 08:32 O2 Flow Rate 2 06/17/22 03:18 BMI result Body Mass Index 35.4 General: AO X 3, no acute distress Resp: Crackles bilateral, no accessory muscles used CVS: S1,S2,RRR, edema GI: soft, non tender, non distended Neuro: motor grossly intact, alert Psych: appropriate affect, appropriate insight DS: Data Data Completed and Pending Labs on day of discharge: Laboratory Results - last 24 hr 06/17/22 06/17/22 06/17/22 07:05 07:05 07:05 WBC 10.2 RBC 4.05 L Hgb 11.1 L Hct 35.1 L MCV 86.7 MCH 27.4 MCHC 31.6 RDW 15.6 Plt Count 492 H MPV 9.5 Absolute Nucleated RBC 0.000 Nucleated RBC % (auto) 0.0 Sodium 138 Potassium 3.6 Chloride 89 L Carbon Dioxide 38 H Anion Gap 15 BUN 17 H Creatinine 0.71 Estim Creat Clear Calc 62.9 Estimated GFR > 60 Fasting Glucose 100 H Calcium 9.3 B-Natriuretic Peptide 1132 H Discharge Plan Discharge Patient Disposition: Home, Self-Care Discharge Diagnosis: chf Referrals: Edmond Davis MD [Primary Care Provider] - 1 Week Discharge Medications: Continued montelukast 10 mg tablet 10 mg PO BEDTIME Qty: 90 0RF omeprazole 20 mg capsule,delayed release(DR/EC) 1 cap PO DAILY levothyroxine 75 mcg Tablet 75 mcg PO DAILY hydralazine 50 mg tablet 1 tab PO TID albuterol sulfate 90 mcg/actuation Hfa Aerosol Inhaler 2 puff INHALATION Q4-6H PRN (Reason: Shortness Of Breath) ferrous sulfate 324 mg (65 mg iron) Tablet,Delayed Release (Dr/Ec) 324 mg PO DAILY cholecalciferol (vitamin D3) [Vitamin D3] 50 mcg (2,000 unit) Tablet 50 mcg PO DAILY ketotifen fumarate 0.025 % (0.035 %) drops 1 drp ophthalmic (eye) BID alendronate 70 mg tablet 70 mg PO MO@0900 simvastatin 20 mg tablet 20 mg PO BEDTIME azelastine 137 mcg (0.1 %) aerosol,spray 2 spray intranasal BID 30 Days Qty: 30 6RF Rx Instructions: administer into each nostril losartan 50 mg tablet 50 mg PO DAILY furosemide 20 mg tablet 20 mg PO BID carvedilol 12.5 mg tablet 12.5 mg PO DAILY calcium carbonate 600 mg calcium (1,500 mg) tablet 600 mg PO BID hydrochlorothiazide 25 mg tablet 25 mg PO DAILY Eliquis 2.5 mg tablet 2.5 mg PO BID Discharge Orders: Discharge Order (Routine); Ordered 06/17/22 Ordered By: Jonatan Flood Diet: Advance to usual diet Activity on Discharge: As tolerated Stand Alone Forms: Patient Portal Discharge page Care Plan Goals: recovery Health Concerns: chf Plan of Treatment: continue lasix, hctz, monitor for weight gain, swelling Assessment: see above
[2022-06-17 12:19] VITALS: BP 154/67; PULSE 76; RESP 20; TEMP 37.1
== END 2022-06-17 14:57 | disposition home or self-care (01) | DRG 291 ==
LOC: HO.ED 14:08 → HO.EDOVER 14:35
PROVIDERS: Admitting Provider Internal Medicine; Emergency Provider Student in an Organized Health Care Education/Training Program; PCP Internal Medicine; Visit Provider Internal Medicine
DX: I11.0 Hypertensive heart disease with heart failure (principal); I50.33 Acute on chronic diastolic (congestive) heart failure; J96.01 Acute respiratory failure with hypoxia; I44.7 Left bundle-branch block, unspecified; E78.5 Hyperlipidemia, unspecified; E03.9 Hypothyroidism, unspecified; M81.0 Age-related osteoporosis without current pathological fracture; J45.40 Moderate persistent asthma, uncomplicated; Z66 Do not resuscitate; D50.9 Iron deficiency anemia, unspecified; J44.9 Chronic obstructive pulmonary disease, unspecified; E66.9 Obesity, unspecified; Z68.35 Body mass index [BMI] 35.0-35.9, adult; G47.33 Obstructive sleep apnea (adult) (pediatric); Z20.822 Contact with and (suspected) exposure to COVID-19; Z86.718 Personal history of other venous thrombosis and embolism; Z86.711 Personal history of pulmonary embolism; Z86.73 Personal history of transient ischemic attack (TIA), and cerebral infarction without residual deficits; Z88.6 Allergy status to analgesic agent; Z79.01 Long term (current) use of anticoagulants; Z79.890 Hormone replacement therapy; Z79.899 Other long term (current) drug therapy
CPT/HCPCS: 36415; 71045; 71250; 80048; 80076; 82728; 83540; 83735; 83880; 84484; 85027; 85379; 87635; 93005; 93306; 96374; 99285; J1940; J2916

== ENCOUNTER → 2022-12-09 13:57 | Outpatient (BNVA) | payer MEDICARE, MEDICAID, SELFPAY | PROVIDERS: PCP Internal Medicine; Visit Provider Hospitalist | DX: J45.40 Moderate persistent asthma, uncomplicated (principal); G47.33 Obstructive sleep apnea (adult) (pediatric); I50.30 Unspecified diastolic (congestive) heart failure; K44.9 Diaphragmatic hernia without obstruction or gangrene; Z91.09 Other allergy status, other than to drugs and biological substances; Z79.899 Other long term (current) drug therapy | CPT/HCPCS: 94618; 99212 ==

== ENCOUNTER 2023-06-02 09:14 | Outpatient (AMB) | payer MEDICARE, MEDICAID, SELFPAY ==
[2023-06-02 09:22] VITALS: PULSE 79; O2SAT 95; BMI 27.4
--- NOTE | 2023-06-02 09:22 | A.OFFVIS_ITS ---
Intake Vital Signs 06/02/23 09:22 Height 5 ft 2 in Weight 150 lb BMI 27.4 Pulse 79 Pulse Source Pulse Oximeter Pulse Oximetry (%) 95 Oxygen Delivery Method Room Air Intake Visit Reasons: COPD/UVALDO Air Duct Mechanic Required: No Allergies ibuprofen [IBUPROFEN] Allergy (Intermediate, Verified 06/02/23 09:24) HIVES HPI HPI Comments History of Present Illness Details The patient is an 82 year-old woman with a known history of hypertension hypercholesterolemia. She has been having a cough now for couple years. It appears the symptoms have been getting worse. She has been seen on multiple urgent cares and has had multiple x-rays per the patient. She usually gets medication and does have a nebulizer but she does not use it regularly. Her cough sometimes is productive of sputum. Usually is whitish in color. She has a hard time sleeping because of the coughing. She does have a rescue inhaler although has never used any maintenance inhalers at this time. She does think she also has allergies, but, she has never been tested that she is aware of. In the office she was found to have significant rhonchi and wheezing. She did receive a DuoNeb treatment with significant improvement of her bronchospasms. ?08/31/2021 the patient is here for a pulmonary follow-up visit. Apparently she was recently admitted to [facility] with increasing shortness of breath and lower extremity edema. She was treated and then transferred to rehab. While she was at rehab she developed worsening shortness of breath again with significant lower extremity edema and she was transferred to [facility]. I did review her admission at [facility]. She did have a chest x-ray demonstrating no acute disease. It appeared that she did have diastolic congestive heart failure exacerbation. She was treated with diuresis. At this point the patient is doing better. She is tolerating the trelegy well. unfortunately, her blood pressure continues to be uncontrolled. Last night she checked her blood pressure at home and was significantly elevated. she apparently took an additional hydralazine which did help. She did not have to go to the hospital 01/24/2022 the patient is here for a pulmonary follow-up visit. Her cough is a little better but she still having issues with her cough. Sccr-[id number] severity. Sometimes is in the productive. The Tessalon Perles have been helpful. We again talked about the importance of reflux disease in the following closely the reflux diet. We did review her barium swallow which indeed demonstrated the hiatal hernia in addition to reflux disease in the question of a fold that appears to have some degree of stenotic appearance. The patient needs to be seen by GI for an upper endoscopy. In the meantime she will continue with reflux diet and sleeping elevated. On examination she does have also some wheezing on examination. She as been using her nebulizer therapy. Again, 1 of those triggers that could be resulting in her bronchospasms and wheezing could be the underlying reflux disease resulting in the pharyngeal laryngeal penetration. 04/25/2022 the patient is here for a pulmonary follow-up visit. Overall the patient has been doing better. She did follow-up with GI. She did undergo an endoscopy in indeed she did have a small hiatal hernia noted. Otherwise looks well. No biopsies were taken. Patient has been doing well she has been using the Tessalon Perles although not sure of the covered. In addition to that she has been using her nebulizer with good effect. She continues with the reflux diet which is reassuring. No imaging studies to review. 12/09/2022 the patient is here for pulmonary follow-up visit. She was recently in the hospital. She was a [facility] with congestive heart failure. The patient during this stay was found to be hypoxic. It is felt that she had significant sleep apnea. She did undergo an in lab sleep study and the patient qualify for CPAP with an AHI of about 60 events per hour. She was placed on APAP. The patient needed a pressure of at least 14 cm water to improve her obstruction. She did follow-up with the Sleep Center at [facility] in the day did order a CPAP for her. In the meantime she continues with respiratory therapy. I will make sure she has Xopenex available for her nebulizer. She does use that once or twice a day to help with bronchodilation of the airways in with her breathing. She also continues with diuresis as tolerated. Will follow-up in 3 months time. She can always bring her machine in so we can further adjusted. 06/02/2023 the patient is here for a pulmonary follow-up visit. The patient overall is doing well. She did start her CPAP therapy. The CPAP therapy has been affecting beneficial. She does use it every night. Although she is getting puffiness of the face because of the mask leakage. She has to put on pre type. She talked to [facility] regarding potential defer mask. In the meantime is only because medic. We talked about alternatives to the mass that she is using. Regarding her asthma her symptoms are better. She has not had to use her nebulizer recently. It seems like her symptoms typically worse the more in the winter time. Will continue to assess her symptoms. They worsen she can always call for an assessment. Otherwise will follow-up in a year's time. [facility] Medical History (Updated 06/02/23 @ 21:17 by Darin Mnajarrez MD) Abnormal barium swallow Asthma Asthma-COPD overlap syndrome Cough Diastolic HF (heart failure) Environmental allergies Hiatal hernia Hiatal hernia History of DVT (deep vein thrombosis) History of pulmonary embolus (PE) (~07/2021) History of TIA (transient ischemic attack) (~01/2022) Hyperlipidemia Hypertension Hypothyroidism Obesity UVALDO (obstructive sleep apnea) Osteoporosis Surgical History History of colonoscopy History of esophagogastroduodenoscopy (EGD) Hx of cholecystectomy Hx of varicose vein stripping Family History (Updated 06/14/22 @ 14:22 by Jonatan Flood MD) Brother Bone cancer Social History Are you a primary manager wound care to a significant other at home: No Do you presently have visiting nurse or other home services: No Patient Tobacco Use Status: Never used Tobacco service: No Current occupational status: retired Review of Systems Const Denies daytime sleepiness and Denies night sweats ENT Denies change in voice, Denies lip swelling, Denies mouth pain, Reports nasal congestion, Reports nasal discharge and Denies tongue swelling Card Denies chest pain and Reports dyspnea on exertion Resp Reports cough, Reports dyspnea on exertion and Denies wheezing GI Reports dyspepsia and Reports heartburn Musc Denies no additional complaints Neuro Denies Neuro-related abnormal movements Psych Denies no additional complaints Jossue/Lymph Denies easy bleeding and Denies lymphadenopathy Aller/Immun Denies lip swelling, Denies tongue swelling and Denies wheezing Physical Exam Vital Signs: Last Vital Signs Pulse 79 06/02/23 09:22 Pulse Ox 95 06/02/23 09:22 Oxygen Delivery Method Room Air 06/02/23 09:22 BMI result Body Mass Index 27.4 Const General: alert Neck Neck: Yes normal visual inspection, Yes full ROM and Yes no lymphadenopathy Chest Chest palpation & inspection: normal inspection of the chest Resp Effort & Inspection: no cough Auscultation: no wheezes and diminished lung sounds Cardio Rate: regular rate Rhythm: regular rhythm Heart sounds: S1 normal heart sound present and S2 normal heart sound present GI Palpation (GI): Soft to palpation Auscultation: normal bowel sounds Skin General skin exam: rashes and/or lesions noted Immunizations pneumoc 20-treasure conj-dip cr(PF) Performing Provider: Darin Manjarrez MD Administered by: Keshia Ring LPN on 06/02/23 09:50 Dose Route Admin Location Lot Number Expiration Date [employer] 0.5 mL IM Right Deltoid [id number] 08/26/24 4409-4821-34 [employer] VIS Given Date VIS Provided VIS Publication Date 06/02/23 Single Vaccine 23 Eligibility Eligibility Date Funding Source Not [facility] Eligible 06/02/23 Private Assessment & Plan Assessment & Plan (1) Cough: Comment: better Code(s): R05 - Cough Qualifiers: Cough type: chronic Qualified Code(s): R05.3 - Chronic cough (2) Asthma: Code(s): J45.909 - Unspecified asthma, uncomplicated Qualifiers: Asthma complication type: uncomplicated Asthma persistence: persistent Asthma severity: moderate Qualified Code(s): J45.40 - Moderate persistent asthma, uncomplicated (3) Hiatal hernia: Code(s): K44.9 - Diaphragmatic hernia without obstruction or gangrene (4) Environmental allergies: Code(s): Z91.09 - Other allergy status, other than to drugs and biological substances (5) Diastolic HF (heart failure): Code(s): I50.30 - Unspecified diastolic (congestive) heart failure (6) UVALDO (obstructive sleep apnea): Code(s): G47.33 - Obstructive sleep apnea (adult) (pediatric) Plan continue budesonide twice a day via nebulizer continue Xopenex twice a day via nebulizer continue Singulair and antihistamine therapy continue APAP, ordered through [facility] reflux diet sleep with the head of bed elevated benzonatate as needed for cough suppressant prevnar 20 follow-up 10-12 months Orders: Orders Pneumococcal 20 Immunization Today Z23 - Encounter for immunization Coding Level of Care Code Est Pt Level 4 (83001) Diagnoses Cough R05.3 Cough type: chronic Asthma J45.40 Asthma complication type: uncomplicated Asthma persistence: persistent Asthma severity: moderate Hiatal hernia K44.9 Environmental allergies Z91.09 Diastolic HF (heart failure) I50.30 UVALDO (obstructive sleep apnea) G47.33 Time Spent (min) 18
== END 2023-06-02 09:50 | disposition home or self-care (01) ==
PROVIDERS: PCP Internal Medicine; Visit Provider Hospitalist
DX: R05.3 Chronic cough (principal); J45.40 Moderate persistent asthma, uncomplicated; K44.9 Diaphragmatic hernia without obstruction or gangrene; Z91.09 Other allergy status, other than to drugs and biological substances; I50.30 Unspecified diastolic (congestive) heart failure; G47.33 Obstructive sleep apnea (adult) (pediatric)
CPT/HCPCS: 99214

== ENCOUNTER → 2023-06-02 09:14 | Outpatient (BNVA) | payer MEDICARE, MEDICAID, SELFPAY | PROVIDERS: PCP Internal Medicine; Visit Provider Hospitalist | DX: Z23 Encounter for immunization (principal); J45.40 Moderate persistent asthma, uncomplicated; R05.3 Chronic cough; G47.33 Obstructive sleep apnea (adult) (pediatric); K44.9 Diaphragmatic hernia without obstruction or gangrene; Z91.09 Other allergy status, other than to drugs and biological substances; I50.30 Unspecified diastolic (congestive) heart failure | CPT/HCPCS: 90471; 90677; 99212 ==

== ENCOUNTER 2024-06-02 11:02 | Outpatient (AMB) | payer MEDICARE, MEDICAID, SELFPAY ==
[2024-06-02 11:12] VITALS: PULSE 77; O2SAT 95; BMI 33.8
--- NOTE | 2024-06-02 11:12 | MHC.OFFVIS ---
Vital Signs 06/02/24 11:12 Height 5 ft 2 in Weight 185 lb BMI 33.8 Pulse 77 Pulse Source Pulse Oximeter Pulse Oximetry (%) 95 Oxygen Delivery Method Room Air Intake Visit Reasons: COPD Advocacy Director Required: No Allergies ibuprofen [IBUPROFEN] Allergy (Intermediate, Verified 06/02/24 11:13) SARA WEBB Comments Details: The patient is an 83 year-old woman with a known history of hypertension hypercholesterolemia. She has been having a cough now for couple years. It appears the symptoms have been getting worse. She has been seen on multiple urgent cares and has had multiple x-rays per the patient. She usually gets medication and does have a nebulizer but she does not use it regularly. Her cough sometimes is productive of sputum. Usually is whitish in color. She has a hard time sleeping because of the coughing. She does have a rescue inhaler although has never used any maintenance inhalers at this time. She does think she also has allergies, but, she has never been tested that she is aware of. In the office she was found to have significant rhonchi and wheezing. She did receive a DuoNeb treatment with significant improvement of her bronchospasms. ?08/31/2021 the patient is here for a pulmonary follow-up visit. Apparently she was recently admitted to [facility] with increasing shortness of breath and lower extremity edema. She was treated and then transferred to rehab. While she was at rehab she developed worsening shortness of breath again with significant lower extremity edema and she was transferred to [facility]. I did review her admission at [facility]. She did have a chest x-ray demonstrating no acute disease. It appeared that she did have diastolic congestive heart failure exacerbation. She was treated with diuresis. At this point the patient is doing better. She is tolerating the trelegy well. unfortunately, her blood pressure continues to be uncontrolled. Last night she checked her blood pressure at home and was significantly elevated. she apparently took an additional hydralazine which did help. She did not have to go to the hospital 01/24/2022 the patient is here for a pulmonary follow-up visit. Her cough is a little better but she still having issues with her cough. Ubhf-ex-irxogiss severity. Sometimes is in the productive. The Tessalon Perles have been helpful. We again talked about the importance of reflux disease in the following closely the reflux diet. We did review her barium swallow which indeed demonstrated the hiatal hernia in addition to reflux disease in the question of a fold that appears to have some degree of stenotic appearance. The patient needs to be seen by GI for an upper endoscopy. In the meantime she will continue with reflux diet and sleeping elevated. On examination she does have also some wheezing on examination. She as been using her nebulizer therapy. Again, 1 of those triggers that could be resulting in her bronchospasms and wheezing could be the underlying reflux disease resulting in the pharyngeal laryngeal penetration. 04/25/2022 the patient is here for a pulmonary follow-up visit. Overall the patient has been doing better. She did follow-up with GI. She did undergo an endoscopy in indeed she did have a small hiatal hernia noted. Otherwise looks well. No biopsies were taken. Patient has been doing well she has been using the Tessalon Perles although not sure of the covered. In addition to that she has been using her nebulizer with good effect. She continues with the reflux diet which is reassuring. No imaging studies to review. 12/09/2022 the patient is here for pulmonary follow-up visit. She was recently in the hospital. She was a [facility] with congestive heart failure. The patient during this stay was found to be hypoxic. It is felt that she had significant sleep apnea. She did undergo an in lab sleep study and the patient qualify for CPAP with an AHI of about 60 events per hour. She was placed on APAP. The patient needed a pressure of at least 14 cm water to improve her obstruction. She did follow-up with the Sleep Center at [facility] in the day did order a CPAP for her. In the meantime she continues with respiratory therapy. I will make sure she has Xopenex available for her nebulizer. She does use that once or twice a day to help with bronchodilation of the airways in with her breathing. She also continues with diuresis as tolerated. Will follow-up in 3 months time. She can always bring her machine in so we can further adjusted. 06/02/2023 the patient is here for a pulmonary follow-up visit. The patient overall is doing well. She did start her CPAP therapy. The CPAP therapy has been affecting beneficial. She does use it every night. Although she is getting puffiness of the face because of the mask leakage. She has to put on pre type. She talked to [facility] regarding potential defer mask. In the meantime is only because medic. We talked about alternatives to the mass that she is using. Regarding her asthma her symptoms are better. She has not had to use her nebulizer recently. It seems like her symptoms typically worse the more in the winter time. Will continue to assess her symptoms. They worsen she can always call for an assessment. Otherwise will follow-up in a year's time. 06/02/2024 the patient is here for a pulmonary follow-up visit. Overall the patient is doing well. She is tolerating the CPAP. The CPAP therapy has been affecting beneficial she does use it every night. She does use it for more than 4 hours a night. She has been having some coughing episodes though before the CPAP. The episodes can be rnei-qm-edgssuwc severity. Sometimes she has a hard time with the cough. The family is concerned. She did recently have a chest x-ray done at [facility] which I personally reviewed demonstrating no acute disease. She does have an ICD placement. She does have increased cardiac size. On exam seems like her drainage in the posterior pharynx is thick appears to be purulent in likely secondary to an upper airway respiratory illness such as sinusitis. Therefore, will be reasonable to treat her. The patient has understands by using CPAP she needs to make sure that she keeps her nasal passages clear. She can today them with saline. She can also use nasal sprays decrease the inflammation. The patient can also use the Tessalon Perles as needed for cough. I will make sure to send those to the pharmacy as well. Will plan to follow-up in the spring less sooner if she develops any worsening issues. [facility] Medical History (Updated 06/02/24 @ 23:11 by Darin Manjarrez MD) UVALDO (obstructive sleep apnea) History of TIA (transient ischemic attack) (~01/2022) Hiatal hernia Hypothyroidism Osteoporosis Obesity Hyperlipidemia History of DVT (deep vein thrombosis) History of pulmonary embolus (PE) (~07/2021) Abnormal barium swallow Asthma-COPD overlap syndrome Hypertension Diastolic HF (heart failure) Environmental allergies Hiatal hernia Cough Asthma Surgical History Hx of varicose vein stripping Hx of cholecystectomy History of esophagogastroduodenoscopy (EGD) History of colonoscopy Family History (Updated 06/14/22 @ 14:22 by Jonatan Flood MD) Brother Bone cancer Social History Are you a primary grounds caretaker to a significant other at home: No Do you presently have visiting nurse or other home services: No Patient Tobacco Use Status: Never used Tobacco service: No Current occupational status: retired Review of Systems Const Denies daytime sleepiness and Denies night sweats ENT Denies change in voice, Denies lip swelling, Denies mouth pain, Reports nasal congestion, Reports nasal discharge and Denies tongue swelling Card Denies chest pain and Reports dyspnea on exertion Resp Reports cough, Reports dyspnea on exertion and Denies wheezing GI Reports dyspepsia and Reports heartburn Musc Denies no additional complaints Neuro Denies Neuro-related abnormal movements Psych Denies no additional complaints Jossue/Lymph Denies easy bleeding and Denies lymphadenopathy Aller/Immun Denies lip swelling, Denies tongue swelling and Denies wheezing Physical Exam Vital Signs: Last Vital Signs Pulse 77 06/02/24 11:12 Pulse Ox 95 06/02/24 11:12 Oxygen Delivery Method Room Air 06/02/24 11:12 BMI result Body Mass Index 33.8 Const General: alert HEENT Ears: unable to visualize TM bilaterally General nose exam: Abnormal mucous membranes and turbinates present erythematous and Nasal discharge present Throat: Yes postnasal drainage Neck Neck: Yes normal visual inspection, Yes full ROM and Yes no lymphadenopathy Chest Chest palpation & inspection: normal inspection of the chest Resp Effort & Inspection: normal respiratory effort and no cough Auscultation: clear to auscultation bilaterally, no rales, no rhonchi and no wheezes Cardio Rate: regular rate Rhythm: regular rhythm Heart sounds: S1 normal heart sound present and S2 normal heart sound present GI Palpation (GI): Soft to palpation Auscultation: normal bowel sounds Skin General skin exam: rashes and/or lesions noted Assessment & Plan Assessment & Plan (1) Cough: Code(s): R05 - Cough Category: Medical Qualifiers: Cough type: chronic Qualified Code(s): R05.3 - Chronic cough (2) Asthma: Code(s): J45.909 - Unspecified asthma, uncomplicated Category: Medical Qualifiers: Asthma complication type: uncomplicated Asthma persistence: persistent Asthma severity: moderate Qualified Code(s): J45.40 - Moderate persistent asthma, uncomplicated (3) Hiatal hernia: Code(s): K44.9 - Diaphragmatic hernia without obstruction or gangrene Category: Medical (4) Environmental allergies: Code(s): Z91.09 - Other allergy status, other than to drugs and biological substances Category: Medical (5) Diastolic HF (heart failure): Code(s): I50.30 - Unspecified diastolic (congestive) heart failure Category: Medical (6) UVALDO (obstructive sleep apnea): Code(s): G47.33 - Obstructive sleep apnea (adult) (pediatric) Category: Medical Plan continue budesonide twice a day via nebulizer continue Xopenex twice a day via nebulizer continue Singulair and antihistamine therapy continue APAP, ordered through [facility] reflux diet sleep with the head of bed elevated benzonatate as needed for cough suppressant start doxycycline for sinusitis start Dymista nasal spray follow-up 8-10 months Medications: New azelastine-fluticasone 137-50 mcg/spray (Dymista) administer into each nostril 1 spray intranasal BID 23 grams 3RF fxgmbavc-vgajnx-FQ-thonzonium 3.3-3-10-0.5 mg/mL (Cortisporin-TC) 4 drps otic (ears) QID 10 mL 0RF 10 days doxycycline hyclate 100 mg PO BID 20 caps 0RF 10 days Changed From benzonatate 200 mg PO BID PRN 120 caps 0RF for cough J44.9 - Chronic obstructive pulmonary disease, unspecified To benzonatate 200 mg PO BID PRN 30 caps 3RF for cough 30 days J44.9 - Chronic obstructive pulmonary disease, unspecified Coding Level of Care Code Est Pt Level 4 (11511) Complex EM visit Add On G2211 Diagnoses Chronic cough R05.3 Cough type: chronic Moderate persistent asthma without complication J45.40 Asthma complication type: uncomplicated Asthma persistence: persistent Asthma severity: moderate Hiatal hernia K44.9 Environmental allergies Z91.09 Diastolic HF (heart failure) I50.30 UVALDO (obstructive sleep apnea) G47.33 Time Spent (min) 16
== END 2024-06-02 11:29 | disposition home or self-care (01) ==
PROVIDERS: PCP Internal Medicine; Visit Provider Hospitalist
DX: R05.3 Chronic cough (principal); J45.40 Moderate persistent asthma, uncomplicated; K44.9 Diaphragmatic hernia without obstruction or gangrene; Z91.09 Other allergy status, other than to drugs and biological substances; I50.30 Unspecified diastolic (congestive) heart failure; G47.33 Obstructive sleep apnea (adult) (pediatric)
CPT/HCPCS: 99214; G2211

== ENCOUNTER → 2024-06-02 11:02 | Outpatient (BNVA) | payer MEDICARE, MEDICAID, SELFPAY | PROVIDERS: PCP Internal Medicine; Visit Provider Hospitalist | DX: J45.40 Moderate persistent asthma, uncomplicated (principal); G47.33 Obstructive sleep apnea (adult) (pediatric); R05.3 Chronic cough; I50.30 Unspecified diastolic (congestive) heart failure; Z91.09 Other allergy status, other than to drugs and biological substances; K44.9 Diaphragmatic hernia without obstruction or gangrene | CPT/HCPCS: 99212 ==

== ENCOUNTER 2025-06-14 14:44 | Outpatient (AMB) | payer MEDICARE, MEDICAID, SELFPAY ==
[2025-06-14 14:47] VITALS: BP 160/84; PULSE 73; O2SAT 95
--- NOTE | 2025-06-14 14:47 | MHC.OFFVIS ---
Vital Signs 06/14/25 14:47 Height 5 ft 2 in BMI Reason not done Patient refused/unable BP 160/84 H Blood Pressure Location Rt brachial Position Sitting Pulse 73 Pulse Source Pulse Oximeter Pulse Oximetry (%) 95 Oxygen Delivery Method Room Air Intake Visit Reasons: copd/uvaldo Accompanied by: Self / Same As Patient Allergies ibuprofen (IBUPROFEN) Allergy (Intermediate, Verified 06/14/25 14:52) SARA WEBB Comments Details: The patient is an 84 year-old woman with a known history of hypertension hypercholesterolemia. She has been having a cough now for couple years. It appears the symptoms have been getting worse. She has been seen on multiple urgent cares and has had multiple x-rays per the patient. She usually gets medication and does have a nebulizer but she does not use it regularly. Her cough sometimes is productive of sputum. Usually is whitish in color. She has a hard time sleeping because of the coughing. She does have a rescue inhaler although has never used any maintenance inhalers at this time. She does think she also has allergies, but, she has never been tested that she is aware of. In the office she was found to have significant rhonchi and wheezing. She did receive a DuoNeb treatment with significant improvement of her bronchospasms. ?08/31/2021 the patient is here for a pulmonary follow-up visit. Apparently she was recently admitted to [facility] with increasing shortness of breath and lower extremity edema. She was treated and then transferred to rehab. While she was at rehab she developed worsening shortness of breath again with significant lower extremity edema and she was transferred to [facility]. I did review her admission at [facility]. She did have a chest x-ray demonstrating no acute disease. It appeared that she did have diastolic congestive heart failure exacerbation. She was treated with diuresis. At this point the patient is doing better. She is tolerating the trelegy well. unfortunately, her blood pressure continues to be uncontrolled. Last night she checked her blood pressure at home and was significantly elevated. she apparently took an additional hydralazine which did help. She did not have to go to the hospital 01/24/2022 the patient is here for a pulmonary follow-up visit. Her cough is a little better but she still having issues with her cough. Csrc-yu-xpcycuyf severity. Sometimes is in the productive. The Tessalon Perles have been helpful. We again talked about the importance of reflux disease in the following closely the reflux diet. We did review her barium swallow which indeed demonstrated the hiatal hernia in addition to reflux disease in the question of a fold that appears to have some degree of stenotic appearance. The patient needs to be seen by GI for an upper endoscopy. In the meantime she will continue with reflux diet and sleeping elevated. On examination she does have also some wheezing on examination. She as been using her nebulizer therapy. Again, 1 of those triggers that could be resulting in her bronchospasms and wheezing could be the underlying reflux disease resulting in the pharyngeal laryngeal penetration. 04/25/2022 the patient is here for a pulmonary follow-up visit. Overall the patient has been doing better. She did follow-up with GI. She did undergo an endoscopy in indeed she did have a small hiatal hernia noted. Otherwise looks well. No biopsies were taken. Patient has been doing well she has been using the Tessalon Perles although not sure of the covered. In addition to that she has been using her nebulizer with good effect. She continues with the reflux diet which is reassuring. No imaging studies to review. 12/09/2022 the patient is here for pulmonary follow-up visit. She was recently in the hospital. She was a [facility] with congestive heart failure. The patient during this stay was found to be hypoxic. It is felt that she had significant sleep apnea. She did undergo an in lab sleep study and the patient qualify for CPAP with an AHI of about 60 events per hour. She was placed on APAP. The patient needed a pressure of at least 14 cm water to improve her obstruction. She did follow-up with the Sleep Center at [facility] in the day did order a CPAP for her. In the meantime she continues with respiratory therapy. I will make sure she has Xopenex available for her nebulizer. She does use that once or twice a day to help with bronchodilation of the airways in with her breathing. She also continues with diuresis as tolerated. Will follow-up in 3 months time. She can always bring her machine in so we can further adjusted. 06/02/2023 the patient is here for a pulmonary follow-up visit. The patient overall is doing well. She did start her CPAP therapy. The CPAP therapy has been affecting beneficial. She does use it every night. Although she is getting puffiness of the face because of the mask leakage. She has to put on pre type. She talked to [facility] regarding potential defer mask. In the meantime is only because medic. We talked about alternatives to the mass that she is using. Regarding her asthma her symptoms are better. She has not had to use her nebulizer recently. It seems like her symptoms typically worse the more in the winter time. Will continue to assess her symptoms. They worsen she can always call for an assessment. Otherwise will follow-up in a year's time. 06/02/2024 the patient is here for a pulmonary follow-up visit. Overall the patient is doing well. She is tolerating the CPAP. The CPAP therapy has been affecting beneficial she does use it every night. She does use it for more than 4 hours a night. She has been having some coughing episodes though before the CPAP. The episodes can be ozsh-fs-gshnuygn severity. Sometimes she has a hard time with the cough. The family is concerned. She did recently have a chest x-ray done at [facility] which I personally reviewed demonstrating no acute disease. She does have an ICD placement. She does have increased cardiac size. On exam seems like her drainage in the posterior pharynx is thick appears to be purulent in likely secondary to an upper airway respiratory illness such as sinusitis. Therefore, will be reasonable to treat her. The patient has understands by using CPAP she needs to make sure that she keeps her nasal passages clear. She can today them with saline. She can also use nasal sprays decrease the inflammation. The patient can also use the Tessalon Perles as needed for cough. I will make sure to send those to the pharmacy as well. Will plan to follow-up in the spring less sooner if she develops any worsening issues. 06/14/2025 the patient is here for pulmonary follow-up visit. She continues to cough. The patient coughs primarily at nighttime that bothers her at nighttime. She has been using the CPAP. CPAP therapy has been affecting beneficial she does use it more than 4 hours a night. She needs to be help with her family. As far as cough medication we did send her [place] nice but they probably 1 covered so therefore will give her a good Rx card and she can take the prescription too big why. In addition to that she can take some cough syrup to try to help her as well with DM. The patient also has some wheezing on exam. She has not been using her nebulizer so will start her on Wixela. She can use it at least once a day. She should rinse and gargle. No recent imaging studies to review. Will plan to follow-up in 4-6 months. If she has any issues she can always call for further recommendations. [facility] Medical History (Updated 06/02/24 @ 23:11 by Darin Manjarrez MD) UVALDO (obstructive sleep apnea) History of TIA (transient ischemic attack) (~01/2022) Hiatal hernia Hypothyroidism Osteoporosis Obesity Hyperlipidemia History of DVT (deep vein thrombosis) History of pulmonary embolus (PE) (~07/2021) Abnormal barium swallow Asthma-COPD overlap syndrome Hypertension Diastolic HF (heart failure) Environmental allergies Hiatal hernia Cough Asthma Surgical History Hx of varicose vein stripping Hx of cholecystectomy History of esophagogastroduodenoscopy (EGD) History of colonoscopy Family History (Updated 06/14/22 @ 14:22 by Jonatan Flood MD) Brother Bone cancer Social History Are you a primary healthcare facility administrator to a significant other at home: No Do you presently have visiting nurse or other home services: No Patient Tobacco Use Status: Never used Tobacco service: No Current occupational status: retired Review of Systems Const Denies daytime sleepiness and Denies night sweats ENT Denies change in voice, Denies lip swelling, Denies mouth pain, Reports nasal congestion, Reports nasal discharge and Denies tongue swelling Card Denies chest pain and Reports dyspnea on exertion Resp Reports cough, Reports dyspnea on exertion and Denies wheezing GI Reports dyspepsia and Reports heartburn Musc Denies no additional complaints Neuro Denies Neuro-related abnormal movements Psych Denies no additional complaints Jossue/Lymph Denies easy bleeding and Denies lymphadenopathy Aller/Immun Denies lip swelling, Denies tongue swelling and Denies wheezing Physical Exam Vital Signs: Last Vital Signs Pulse 73 06/14/25 14:47 BP 160/84 H 06/14/25 14:47 Pulse Ox 95 06/14/25 14:47 Oxygen Delivery Method Room Air 06/14/25 14:47 Const General: alert HEENT Ears: unable to visualize TM bilaterally General nose exam: Abnormal mucous membranes and turbinates present erythematous and Nasal discharge present Throat: Yes postnasal drainage Neck Neck: Yes normal visual inspection, Yes full ROM and Yes no lymphadenopathy Chest Chest palpation & inspection: normal inspection of the chest Resp Effort & Inspection: normal respiratory effort and no cough Auscultation: clear to auscultation bilaterally, no rales, no rhonchi and wheezes Cardio Rate: regular rate Rhythm: regular rhythm Heart sounds: S1 normal heart sound present and S2 normal heart sound present GI Palpation (GI): Soft to palpation Auscultation: normal bowel sounds Skin General skin exam: rashes and/or lesions noted Assessment & Plan Assessment & Plan (1) Cough: Code(s): R05 - Cough Category: Medical Qualifiers: Cough type: chronic Qualified Code(s): R05.3 - Chronic cough (2) Asthma: Code(s): J45.909 - Unspecified asthma, uncomplicated Category: Medical Qualifiers: Asthma complication type: uncomplicated Asthma persistence: persistent Asthma severity: moderate Qualified Code(s): J45.40 - Moderate persistent asthma, uncomplicated (3) Hiatal hernia: Code(s): K44.9 - Diaphragmatic hernia without obstruction or gangrene Category: Medical (4) Environmental allergies: Code(s): Z91.09 - Other allergy status, other than to drugs and biological substances Category: Medical (5) Diastolic HF (heart failure): Code(s): I50.30 - Unspecified diastolic (congestive) heart failure Category: Medical (6) UVALDO (obstructive sleep apnea): Code(s): G47.33 - Obstructive sleep apnea (adult) (pediatric) Category: Medical Plan stop budesonide twice a day via nebulizer continue Xopenex (levalbuterol) twice a day via nebulizer start Breo continue Singulair and antihistamine therapy continue APAP, ordered through [facility] [place] [place] reflux diet sleep with the head of bed elevated benzonatate as needed for cough suppressant Dymista nasal spray follow-up 8-12 months Medications: New dextromethorphan-guaifenesin 10-200 mg/5 mL 10 mL PO Q8H PRN 473 mL 3RF cough 30 days fluticasone furoate-vilanterol 200-25 mcg/dose (Breo Ellipta) 1 inh inhalation DAILY 60 ea 11RF 30 days Refilled benzonatate 200 mg PO BID PRN 30 caps 3RF for cough 30 days J44.9 - Chronic obstructive pulmonary disease, unspecified Coding Level of Care Code Est Pt Level 4 (94603) Diagnoses Chronic cough R05.3 Cough type: chronic Moderate persistent asthma without complication J45.40 Asthma complication type: uncomplicated Asthma persistence: persistent Asthma severity: moderate Hiatal hernia K44.9 Environmental allergies Z91.09 Diastolic HF (heart failure) I50.30 UVALDO (obstructive sleep apnea) G47.33 Time Spent (min) 16
--- OUTSIDE RECORDS SUMMARY | 2025-06-14 16:08 | XMS_ITS | Clinical Summary ---
Author Organization [employer] [facility] Address [address] [place] [address] Care Team Providers Care Mds Rn Name Role Phone Edmond Davis MD Primary Care Provider [phone] Allergies Active Allergy Reactions Criticality Noted Date Comments Ibuprofen 10/05/2021 Medications Medication Sig Dispensed Refills Start Date End Date Status carvedilol (COREG) 12.5 MG tablet Take 12.5 mg by mouth 2 (two) times a day with meals. 0 Active alendronate (FOSAMAX) tablet 70 mg Take 70 mg by mouth every 7 days. Take with water on empty stomach/Nothing by mouth and do not lie down for next 30 minutes 0 Active azelastine (ASTELIN) 0.1 % nasal spray spray or apply 1 spray inside Nose 2 (two) times a day. Use in each nostril as directed 0 Active Calcium Carb-Cholecalciferol D3 250-125 MG-UNIT TABS Take 1 tablet by mouth daily. 0 Active Cholecalciferol (Vitamin D3) 50 MCG (2000 UT) capsule Take 2,000 Units by mouth daily. 0 Active furosemide (LASIX) 20 MG tablet Take 20 mg by mouth 2 (two) times a day. 0 Active hydroCHLOROthiazide (HYDRODIURIL) tablet 25 mg Take 25 mg by mouth daily. 0 Active losartan (COZAAR) tablet 50 mg Take 50 mg by mouth daily. 0 Active montelukast (SINGULAIR) 10 MG tablet Take 10 mg by mouth every night at bedtime. 0 Active Fluticasone Furoate-Vilanterol 200-25 MCG/INH AEPB Inhale into the lungs. 0 Active apixaban (ELIQUIS) 5 MG TABS tablet Take by mouth every 12 (twelve) hours. 0 Active simvastatin (ZOCOR) tablet 20 mg Take 20 mg by mouth every night at bedtime. 0 Active hydrALAZINE (APRESOLINE) 25 MG tablet Take 25 mg by mouth 3 (three) times a day. 0 Active ketotifen ( Ketotifen Fumarate) 0.025 % ophthalmic solution 1 drop 2 (two) times a day. 0 Active levothyroxine (SYNTHROID) tablet 75 mcg Take 75 mcg by mouth every morning on an empty stomach. 0 Active Active Problems No known active problems Social History Tobacco Use Types Packs/Day Years Used Date Smoking Tobacco: Never Assessed Sex and Gender Information Value Date Recorded Sex Assigned at Not on file Gender Identity Not on file Sexual Orientation Not on file Last Filed Vital Signs Vital Sign Reading Time Taken Comments Blood Pressure 159/71 02/06/2022 10:53 AM EDT Pulse 66 02/06/2022 10:53 AM EDT Temperature 36.4 C (97.6 F) 02/06/2022 10:53 AM EDT Respiratory Rate - - Oxygen Saturation 98% 02/06/2022 10:53 AM EDT Inhaled Oxygen Concentration - - Weight 86.6 kg (191 lb) 02/06/2022 10:53 AM EDT Height 152.4 cm (5') 02/06/2022 10:53 AM EDT Body Mass Index 37.3 02/06/2022 10:53 AM EDT Plan of Treatment Health Maintenance Due Date Last Done Comments COVID-19 Vaccine (#1) 05/11/1941 Depression Screening 1951 Preventative Health Evaluation 1957 DTap / Tdap / Td (1 - Tdap) 1958 Shingrix-Zoster Vaccine (1 of 2) 1989 Fall Risk Assessment 2004 Osteoporosis Screening (DEXA Scan) 2004 Pneumococcal Vaccine (1 of 1 - PCV) 2004 RSV Adult > 60+ Yrs or Pregn ant (1 - 1-dose 75+ series) 2014 Influenza Vaccine (#1) 2025 Hepatitis B Vaccines Aged Out No long er eligible based on patient's age to complete this topic RSV Ped < 20 months Aged Out No longe r eligible based on patient's age to complete this topic Care Teams Mds Rn Relationship Specialty Start Date End Date Edmond Davis MD [address] [place] [address] PCP - General Internal Medicine 08/31/21
--- OUTSIDE RECORDS SUMMARY | 2025-06-14 16:08 | XMS_ITS | Clinical Summary ---
Author Organization [address] Address [address] [place] [address] Phone Care Team Providers Care Junior Staff Accountant Name Role Phone Edmond Davis MD Primary Care Provider [phone] Surgical History Surgery Date Site/Laterality Comments CHOLECYSTECTOMY PROCEDURE: HISTORICAL CHOLECYSTECTOMY TUBAL LIGATION PROCEDURE: HISTORICAL TUBAL LIGATION Medical History Medical History Date Comments Obesity DX:Obesity Osteoporosis DX:Osteoporosis Social History Tobacco Use Types Packs/Day Years Used Date Smoking Tobacco: Never Smokeless Tobacco: Never Alcohol Use Standard Drinks/Week Comments Never 0 (1 standard drink = 0.6 oz pur e alcohol) Comments Unknown Sex and Gender Information Value Date Recorded Sex Assigned at Not on file Legal Sex Female 4:50 AM EST Gender Identity Not on file Sexual Orientation Not on file Obstetrics History Last Filed Vital Signs Vital Sign Reading Time Taken Comments Blood Pressure 138/78 04/23/2023 2:17 PM EDT Sit ting R Arm Pulse 66 02/06/2022 10:53 AM EDT Temperature - - Respiratory Rate - - Oxygen Saturation - - Inhaled Oxygen Concentration - - Weight 92.1 kg (203 lb) 04/23/2023 2:17 PM EDT Height 160 cm (5' 3 ) 04/23/2023 2:17 PM EDT Body Mass Index 35.96 04/23/2023 2:17 PM EDT Plan of Treatment Health Maintenance Due Date Last Done Comments DTaP,Tdap,and Td Vaccines (1 - Tdap) 1958 RSV Immunization Adult Patients (1 - 1-dose 75+ series) 2014 Falls Risk Assessment 09/29/2022 Social Influencers of Health Screening 09/29/2022 COVID-19 Vaccine ( season) 2024 01/30/2021, 12/16/2020 Depression Screening 10/27/2024 Influenza Vaccine (#1) 2025 2, 07/09/2021, 06/28/2020, Additional history exists Hypertension/CHF/CAD Annual BMP Blood Test 03/02/2026 03/02/2025 Cholesterol Screening (Lipid Panel) 03/02/2030 03/02/2025 Osteoporosis Screening (Bone Density Screening) 03/18/2034 03/18/2024, 04/15/2018 Zoster Vaccines Completed 10/21/2018, 07/07/2018 Pneumococcal Vaccine: 50+ Years Completed 06/02/2023, 07/07/2018 HIB Vaccines Aged Out No longer eligi ble based on patient's age to complete this topic HPV Vaccines Aged Out No longer eligi ble based on patient's age to complete this topic Hepatitis A Vaccines Aged Out No long er eligible based on patient's age to complete this topic Hepatitis B Vaccines Aged Out No long er eligible based on patient's age to complete this topic IPV Vaccines Aged Out No longer eligi ble based on patient's age to complete this topic MMR Vaccines Aged Out No longer eligi ble based on patient's age to complete this topic Meningococcal ACWY Vaccine Aged Out N o longer eligible based on patient's age to complete this topic Meningococcal B Vaccine Aged Out No l onger eligible based on patient's age to complete this topic RSV Immunization Patients Under 20 months Aged Out No longer eligible based on patient's age to complete this topic Varicella Vaccines Aged Out No longer eligible based on patient's age to complete this topic Procedures Procedure Name Priority Date/Time Associated Diagnosis Comments COMPREHENSIVE METABOLIC PANEL Routine 03/02/2025 10:50 AM EDT High risk medications (not anticoagulants) long-term use LIPID PANEL WITH REFLEX TO DIRECT LDL Routine 03/02/2025 10:50 AM EDT High risk medications (not anticoagulants) long-term use VIDAL DEXA AXIAL SKELETON Routine 03/18/2024 8:08 AM EDT Other specified disorders of bone density and structure, other site from Last 3 Months or Most Recently Relevant to Health Maintenance Results * Lipid panel with reflex to direct LDL (03/02/2025 10:50 AM EDT) Cholesterol 148 0 - 200 mg/dL LAB CHEMISTRY METHOD 03/02/2025 12:53 PM EDT [facility] Triglycerides 79 0 - 150 mg/dL LAB CHEMISTRY METHOD 03/02/2025 12:53 PM EDT [facility] HDL 71 >=40 mg/dL LAB CHEMISTRY METHOD 03/02/2025 12:53 PM EDT [facility] LDL Calculated 61 0 - 100 mg/dL LAB CHEMISTRY METHOD 03/02/2025 12:53 PM EDT [facility] VLDL Cholesterol Edward 15.8 mg/dL LAB CHEMISTRY METHOD 03/02/2025 12:53 PM [facility] Non HDL Chol. (LDL+VLDL) 77 <145 mg/dL LAB CHEMISTRY METHOD 03/02/2025 12:53 PM EDT [facility] Chol/HDL Ratio 2.1 0.0 - 4.4 LAB CHEMISTRY METHOD 03/02/2025 12:53 PM T [facility] Blood Venous blood specimen / Unknown Venipuncture / Unknown 03/02/2025 10:50 AM EDT 03/02/2025 11:41 AM EDT us Claudine Mercado TEST CONDUCTOR LAB BLOOD ORDERABLES Final Re sult [facility] [address] [place] [address], * Comprehensive metabolic panel (03/02/2025 10:50 AM EDT) Pathologist [facility] Sodium 136 133 - 145 mmol/L LAB CHEMISTRY METHOD 03/02/2025 12:53 PM EDT [facility] Potassium 4.1 3.5 - 5.5 mmol/L LAB CHEMISTRY METHOD 03/02/2025 12:53 PM EDT [facility] Chloride 102 96 - 110 mmol/L LAB CHEMISTRY METHOD 03/02/2025 12:53 PM [facility] CO2 28 21 - 32 mmol/L LAB CHEMISTRY METHOD 03/02/2025 12:53 PM [facility] Anion Gap 6 3 - 11 LAB CHEMISTRY METHOD 03/02/2025 12:53 PM [facility] Glucose 89 70 - 100 mg/dL LAB CHEMISTRY METHOD 03/02/2025 12:53 PM [facility] BUN 17 5 - 25 mg/dL LAB CHEMISTRY METHOD 03/02/2025 12:53 PM [facility] Creatinine 0.77 0.50 - 1.10 mg/dL LAB CHEMISTRY METHOD 03/02/2025 12:53 PM [facility] eGFR 76 >=60 mL/min/1. 73m2 LAB CHEMISTRY METHOD 03/02/2025 12:53 PM [facility] Comment:Calculation based on the Chronic Kidney Disease Epidemiology Collaboration (CKD-EPI) equation refit without adjustment for race. BUN/Creatinine Ratio 22.1 LAB CHEMISTRY METHOD 03/02/2025 12:53 PM [facility] Calcium 9.8 8.5 - 10.5 mg/dL LAB CHEMISTRY METHOD 03/02/2025 12:53 PM [facility] AST (SGOT) 19 10 - 42 unit/L LAB CHEMISTRY METHOD 03/02/2025 12:53 PM [facility] ALT (SGPT) 21 10 - 60 unit/L LAB CHEMISTRY METHOD 03/02/2025 12:53 PM [facility] Alkaline Phosphatase 96 42 - 121 unit/L LAB CHEMISTRY METHOD 03/02/2025 12:53 PM [facility] Total Protein 7.4 6.0 - 8.0 g/dL LAB CHEMISTRY METHOD 03/02/2025 12:53 PM [facility] Albumin 3.3 3.2 - 5.0 g/dL LAB CHEMISTRY METHOD 03/02/2025 12:53 PM EDT [facility] Total Bilirubin 0.5 0.0 - 1.4 mg/dL LAB CHEMISTRY METHOD 03/02/2025 12:53 PM EDT [facility] Blood Venous blood specimen / Unknown Venipuncture / Unknown 03/02/2025 10:50 AM EDT 03/02/2025 11:41 AM EDT us Claudine Mercado TEST CONDUCTOR LAB BLOOD ORDERABLES Final Re sult [facility] [address] [place] [address], * VIDAL DEXA AXIAL SKELETON (03/18/2024 8:08 AM EDT) Anatomical Region Laterality Modality Mammography 03/17/2024 1:51 PM EDT Narrative 03/18/2024 8:[address] [facility] Diagnostic Imaging Department [address] [place] [address] Patient: CARLA MANJARREZ/Age/Sex: 1940 - 83 - F Unit#: [id number] Location/Status: SPDIMAM/REG CLI Mnemonic/Ordering Site: MAMDEXAAX/SPMAM Ordering Physician: CLAUDINE MERCADO TEST CONDUCTOR Vidal Dexa Axial Skeleton - 03/17/24 - [id number] Report Status:Signed HISTORY: The patient is an 83-year-old postmenopausal female with clinical concern for metabolic bone disease. FINDINGS: Dual energy x-ray absorptiometry of the lumbar spine and femurs is performed. The mean bone mineral density at L1-L4 is 0.955 gm/cm2 which is 81% of that of young normals and 94% of that of age matched controls. This yields a T-score of -1.9 and a Z-score of -0.6 which is diagnostic of osteopenia. The mean bone mineral density of the femurs bilaterally is 0.779 gm/cm2 which is 77% of that of young normals and 100% of that of age matched controls. This yields a T-score of -1.8 and a Z-score of 0.0 which is diagnostic of osteopenia. The T-score of the right femoral neck is -1.6 and that of the left femoral neck is -2.0 which is diagnostic of osteopenia. IMPRESSION: 1. Osteopenia. There has been a decrease of 2.3% in bone mineral density in the lumbar spine since the prior examination of 04/15/2018. There has been a decrease of 1.9% in bone mineral density in the right femur and a decrease of 11.8% in bone mineral density in the left femur. 2. FRAX analysis yields a 10-year probability of major osteoporotic fracture of 8.9% and a 10-year probability of hip fracture of 2.6%. Code 99420 Dictating Physician: KATHLEEN VILLA MD Electronically Signed by: KATHLEEN VILLA MD Dic Date/Time: 03/18/24 08 Sign date/Time: 03/18/24 0808 Procedure Note Kathleen Villa MD - 06/14/2024 [facility] Diagnostic Imaging Department [address] [place] [id number] Patient: CARLA MANJARREZ /Age/Sex: 1940 - 83 - F Unit#: [id number] Location/Status: [facility]/REG I Mnemonic[facility] Ordering Physician: CLAUDINE MERCADO TEST CONDUCTOR [facility] Dexa Axial Skeleton - 03/17/24 - [id number] Report Status:Signed HISTORY: The patient is an 83-year-old postmenopausal female withclinical concern for metabolic bone disease. FINDINGS: Dual energy x-ray absorptiometry of the lumbar spine and femursis performed. The mean bone mineral density at L1-L4 is 0.955 gm/cm2 which is81% of that of young normals and 94% of that of age matched controls. Thisyields a T-score of -1.9 and a Z-score of -0.6 which is diagnostic of osteopenia. The mean bone mineral density of the femurs bilaterally is 0.779 gm/vq8rxmts is 77% of that of young normals and 100% of that of age matched controls.This yields a T-score of -1.8 and a Z-score of 0.0 which is diagnostic ofosteopenia. The T-score of the right femoral neck is -1.6 and that of the left femoralneck is -2.0 which is diagnostic of osteopenia. IMPRESSION: 1. Osteopenia. There has been a decrease of 2.3% in bone mineral densityin the lumbar spine since the prior examination of 04/15/2018. There has marni decrease of 1.9% in bone mineral density in the right femur and a decreaseof 11.8% in bone mineral density in the left femur. 2. FRAX analysis yields a 10-year probability of major osteoporoticfracture of 8.9% and a 10-year probability of hip fracture of 2.6%. Code 03519 Dictating Physician: KATHLEEN VILLA MD Electronically Signed by: KATHLEEN VILLA MD Dic Date/Time: 03/18/24 0805 Sign date/Time: 03/18/24 0808 Claudine Mercado TEST CONDUCTOR IMG BI PROCEDURES Final Resul t from Last 3 Months or Most Recently Relevant to Health Maintenance Insurance [place]ICA[place] - [place] [facility] Advance Directives Documents on File Type Date Recorded Patient Director [facility] Expl anation Health Care Decision (hx) 08/11/2021 AD ROMERO DIRECTIVE Health Care Decision (hx) 08/11/2021 AD ROMERO DIRECTIVE Health Care Decision (hx) 08/11/2021 AD ROMERO DIRECTIVE Health Care Decision (hx) 08/11/2021 AD ROMERO DIRECTIVE Health Care Decision (hx) 08/11/2021 AD ROMERO DIRECTIVE Care Teams Junior Staff Accountant Relationship Specialty Start Date End Date Edmond Davis MD [address] [place] [id number] PCP - General Internal Medicine 03/02/25
== END 2025-06-14 15:16 | disposition home or self-care (01) ==
LOC: HO.HPS 14:45
PROVIDERS: PCP Internal Medicine; Visit Provider Hospitalist
DX: R05.3 Chronic cough (principal); J45.40 Moderate persistent asthma, uncomplicated; K44.9 Diaphragmatic hernia without obstruction or gangrene; Z91.09 Other allergy status, other than to drugs and biological substances; I50.30 Unspecified diastolic (congestive) heart failure; G47.33 Obstructive sleep apnea (adult) (pediatric)
CPT/HCPCS: 99214

== ENCOUNTER → 2025-06-14 14:44 | Outpatient (BNVA) | payer MEDICARE, MEDICAID, SELFPAY | PROVIDERS: PCP Internal Medicine; Visit Provider Hospitalist | DX: R05.3 Chronic cough (principal); J45.40 Moderate persistent asthma, uncomplicated; K44.9 Diaphragmatic hernia without obstruction or gangrene; Z91.09 Other allergy status, other than to drugs and biological substances; I50.30 Unspecified diastolic (congestive) heart failure; G47.33 Obstructive sleep apnea (adult) (pediatric); Z99.89 Dependence on other enabling machines and devices | CPT/HCPCS: 99212 ==